=== PATIENT | female | born 1935 | race Caucasian/White ===

== ENCOUNTER 2018-01-01 17:48 | Observation (INO) | payer MEDICARE, BC ==
[~2018-01-01] VITALS: Ht 165.1 cm; Wt 120.0 kg
[2018-01-01 18:51] VITALS: BP 159/81; PULSE 94; RESP 18; TEMP 97.7; O2SAT 95
--- NOTE | 2018-01-01 19:26 | PD ---
HPI Chief Complaint: Abdominal Pain Time Seen by Provider: 19:01 Travel History International Travel<30 days: No Contact w/Intl Traveler<30days: No Traveled to known affect area: No History of Present Illness HPI 82-year-old female presents to the emergency department for evaluation of generalized abdominal pain, nausea, vomiting, diarrhea for 4 days. She states it started with a choking and coughing episode at a restaurant. Patient states she was seen at [facility] yesterday. However, she states her symptoms have worsened. She states she has had 4 episodes of vomiting today, 3 episodes of diarrhea. She states the diarrhea started today. She states she had a fever of 103.0 when she saw her primary care physician earlier today. He referred her to the emergency department. Patient reports history of chronic back pain, has a Dilaudid pain pump. She reports history of partial hysterectomy, cholecystectomy, appendectomy. Patient currently rates her abdominal pain 5/10, aching and throbbing across the upper abdomen. She also reports associated shortness of breath. Patient states she did not take anything for her fever. She is currently afebrile. No exacerbating or alleviating factors. Moderate severity PFSH Past Medical History High Cholesterol: Yes Diabetes: Yes Patient Takes Glucophage: No GERD: Yes Hypertension: Yes Pneumonia: Yes Tetanus Vaccination: > 5 Years Influenza Vaccination: No Past Surgical History Cholecystectomy: Yes Hysterectomy: Yes Tonsillectomy: Yes Social History Alcohol Use: No Tobacco Use: No Substance Use: No Allergies-Medications (Allergen,Severity, Reaction): Coded Allergies: acetaminophen (Verified Allergy, Unknown, 01/01/18) celecoxib (Verified Allergy, Unknown, 01/01/18) meperidine (Verified Allergy, Unknown, 01/01/18) morphine (Verified Allergy, Unknown, 01/01/18) oxycodone (Verified Allergy, Unknown, 01/01/18) propoxyphene (Verified Allergy, Unknown, 01/01/18) Reported Meds & Prescriptions Reported Meds & Active Scripts Active Reported Isosorbide Mononitrate ER (Isosorbide Mononitrate) 60 Mg Tab 60 Mg PO DAILY Novolog Inj (Insulin Aspart) 1,000 Unit/10 Ml Vial 0 SQ DIRECTED Sliding Scale as directed. Metoprolol Tartrate 25 Mg Tab 25 Mg PO BID Aspirin Low Dose (Aspirin) 81 Mg Chew 81 Mg CHEW DAILY Crestor (Rosuvastatin Calcium) 5 Mg Tab 5 Mg PO DAILY Gabapentin 100 Mg Cap 100 Mg PO HS Prilosec (Omeprazole Magnesium) 20 Mg Tab 40 Mg Hydroxyzine HCl 25 Mg Tab 25 Mg PO TID Bentyl (Dicyclomine HCl) 10 Mg Cap 10 Mg PO QID Review of Systems Except as stated in HPI: all other systems reviewed are Neg Physical Exam Narrative GENERAL: Well-nourished, well-developed female patient, afebrile. SKIN: Focused skin assessment warm/dry. HEAD: Normocephalic. Atraumatic EYES: No scleral icterus. No injection or drainage. NECK: Supple, trachea midline. No JVD or lymphadenopathy. CARDIOVASCULAR: Regular rate and rhythm without murmurs, gallops, or rubs. RESPIRATORY: Breath sounds equal bilaterally. No accessory muscle use. Lung sounds are clear to auscultation GASTROINTESTINAL: Abdomen soft and nondistended. She has epigastric tenderness to palpation. MUSCULOSKELETAL: No cyanosis, or edema. BACK: Nontender without obvious deformity. No CVA tenderness. Data Data Last Documented VS Vital Signs Date Time Temp Pulse Resp B/P (MAP) Pulse Ox O2 Delivery O2 Flow Rate FiO2 01/01/18 19:01 18 01/01/18 18:51 97.7 94 159/81 (107) 95 Orders Orders Complete Blood Count With Diff (01/01/18 19:16) Comprehensive Metabolic Panel (01/01/18 19:16) Lipase (01/01/18 19:16) Lactic Acid (01/01/18 19:16) Prothrombin Time / Inr (Pt) (01/01/18 19:16) Act Partial Throm Time (Ptt) (01/01/18 19:16) Urinalysis - C+S If Indicated (01/01/18 19:16) Ct Abd/Pel W Iv Contrast(Rout) (01/01/18 19:16) Iv Access Insert/Monitor (01/01/18 19:16) Ecg Monitoring (01/01/18 19:16) Oximetry (01/01/18 19:16) Ondansetron Inj (Zofran Inj) (01/01/18 19:30) Sodium Chloride 0.9% Flush (Ns Flush) (01/01/18 19:30) Electrocardiogram (3/19/18 19:16) Creatine Kinase (Cpk) (01/01/18 19:16) Troponin I (01/01/18 19:16) Chest, Single Ap (01/01/18 ) Sodium Chlorid 0.9% 500 Ml Inj (Ns 500 M (01/01/18 19:30) Influenzae A/B Antigen (01/01/18 19:16) CKMB (01/01/18 19:38) CKMB% (01/01/18 19:38) Sodium Chlorid 0.9% 500 Ml Inj (Ns 500 M (01/01/18 20:45) Iohexol 350 Inj (Omnipaque 350 Inj) (01/01/18 21:06) Aspirin Chew (Aspirin Chew) (01/01/18 21:45) Admit Order (Ed Use Only) (01/01/18 22:04) Place In Observation (01/01/18 ) Vital Signs (Adult) Q4H (01/01/18 22:04) Activity Oob With Assistance (01/01/18 22:04) Cyber Ops Planner / Telemetry .CONTINUOUS (01/01/18 22:04) Diet Heart Healthy (01/02/18 Breakfast) Sodium Chloride 0.9% Flush (Ns Flush) (01/01/18 22:15) Sodium Chloride 0.9% Flush (Ns Flush) (01/02/18 09:00) Basic Metabolic Panel (Bmp) (01/02/18 06:00) Complete Blood Count With Diff (01/02/18 06:00) Creatine Kinase (Cpk) (01/02/18 02:00) Creatine Kinase (Cpk) (01/02/18 08:00) Troponin I (01/02/18 02:00) Troponin I (01/02/18 08:00) Electrocardiogram (01/02/18 02:00) Electrocardiogram (01/02/18 08:00) Naloxone Inj (Narcan Inj) (01/01/18 22:15) Labs Laboratory Tests Test 01/01/18 19:38 01/01/18 20:20 White Blood Count 12.7 TH/MM3 Red Blood Count 4.84 MIL/MM3 Hemoglobin 14.5 GM/DL Hematocrit 43.7 % Mean Corpuscular Volume 90.4 FL Mean Corpuscular Hemoglobin 29.9 PG Mean Corpuscular Hemoglobin Concent 33.0 % Red Cell Distribution Width 13.3 % Platelet Count 208 TH/MM3 Mean Platelet Volume 9.4 FL Neutrophils (%) (Auto) 69.4 % Lymphocytes (%) (Auto) 20.3 % Monocytes (%) (Auto) 9.8 % Eosinophils (%) (Auto) 0.0 % Basophils (%) (Auto) 0.5 % Neutrophils # (Auto) 8.8 TH/MM3 Lymphocytes # (Auto) 2.6 TH/MM3 Monocytes # (Auto) 1.2 TH/MM3 Eosinophils # (Auto) 0.0 TH/MM3 Basophils # (Auto) 0.1 TH/MM3 CBC Comment DIFF FINAL Differential Comment Prothrombin Time 10.7 SEC Prothromb Time International Ratio 1.1 RATIO Activated Partial Thromboplast Time 25.0 SEC Blood Urea Nitrogen 13 MG/DL Creatinine 0.99 MG/DL Random Glucose 79 MG/DL Total Protein 7.8 GM/DL Albumin 3.6 GM/DL Calcium Level 9.4 MG/DL Alkaline Phosphatase 63 U/L Aspartate Amino Transf (AST/SGOT) 29 U/L Alanine Aminotransferase (ALT/SGPT) 21 U/L Total Bilirubin 0.7 MG/DL Sodium Level 143 MEQ/L Potassium Level 3.4 MEQ/L Chloride Level 105 MEQ/L Carbon Dioxide Level 28.2 MEQ/L Anion Gap 10 MEQ/L Estimat Glomerular Filtration Rate 54 ML/MIN Lactic Acid Level 1.5 mmol/L Total Creatine Kinase 467 U/L Creatine Kinase MB 3.8 NG/ML Creatine Kinase MB % 0.8 % Troponin I 0.09 NG/ML Lipase 62 U/L Urine Color LIGHT-YELLOW Urine Turbidity CLEAR Urine pH 7.[address] [place] 1.006 Urine Protein NEG mg/dL Urine Glucose (UA) NEG mg/dL Urine Ketones NEG mg/dL Urine Occult Blood TRACE Urine Nitrite NEG Urine Bilirubin NEG Urine Urobilinogen LESS THAN 2.0 MG/DL Urine Leukocyte Esterase SMALL Urine RBC 1 /hpf Urine WBC 5 /hpf Urine Squamous Epithelial Cells 3 /hpf Urine Bacteria RARE /hpf Microscopic Urinalysis Comment CULT NOT INDICATED MDM Medical Decision Making Medical Screen Exam Complete: Yes Emergency Medical Condition: Yes Medical Record Reviewed: Yes Interpretation(s) chest x-ray - CONCLUSION: 1. No acute findings. Cardiomegaly. Differential Diagnosis Pancreatitis versus diverticulitis versus UTI versus pneumonia versus influenza versus gastroenteritis Narrative Course 82-year-old female presents to the emergency department for evaluation of abdominal pain, fever, nausea, vomiting, diarrhea. EKG, CBC, CMP, CK, troponin , lactic acid, lipase, PTT, PT/INR, UA are ordered and pending. Chest x-ray and CT abdomen/pelvis with IV contrast ordered and pending. Patient was given normal saline 500 mL bolus, Zofran 4 mg IV. Influenza swab is ordered and pending EKG shows sinus rhythm, no acute ST changes. CBC shows leukocytosis of 12.7. CMP shows no acute abnormality. CK is 467. Troponin is 0.09. Lactic acid is 1.5. Lipase is 62. Coags show no acute abnormality. UA is negative for acute infection. Influenza is negative. Chest x-ray shows no acute findings, cardiomegaly. CT abdomen/pelvis shows ventral hernia near the umbilicus containing a small portion of the transverse colon without evidence for obstruction, previous cholecystectomy, small renal parapelvic cyst, previous fusion l lower lumbar spine with laminectomy, spinal stimulator wire present, moderate coronary calcifications. Patient is given aspirin 162 mg p.o. for elevated troponin. Patient will be admitted to trend troponins. Hospitalist is paged for admission. Dr. Aguirre accepted admission. Diagnosis Primary Impression: Epigastric abdominal pain Additional Impression: Elevated troponin Admitting Information Admitting Physician Requests: Tammi Hinson Jan 01, 2018 19:26
[2018-01-01] MEDS ORDERED: SODIUM CHLORID 0.9% 500 ML INJ 500 ML IV ONE ×2 (19:30→20:45)
[2018-01-01] MEDS ORDERED: SODIUM CHLORIDE 0.9% FLUSH 10 ML FLUSH IV FLUSH PRN ×2 (19:30→22:15)
[2018-01-01] MEDS ORDERED: ONDANSETRON HCL 4 MG/2 ML VIAL IVP ONE (19:30)
--- NOTE | 2018-01-01 20:07 | PD ---
Physical Exam Narrative General: The patient is a well-developed well-nourished female in no acute distress. Head and Neck exam: Head is normocephalic atraumatic. Eyes: EOMI, pupils are equal round and reactive to light. Nose: Midline septum with pink mucous membranes Mouth: Dentition unremarkable. Moist mucus membranes. Posterior oropharynx is not erythematous. No tonsillar hypertrophy. Uvula midline. Airway patent. Neck: No palpable lymphadenopathy. No nuchal rigidity. No thyromegaly. Cardiovascular: Regular rate and rhythm without murmurs, gallops, or rubs. Lungs: Clear to auscultation bilaterally. No wheezes, rhonchi, or rales. Abdomen: Soft, with central obesity noted therefore distended abdomen related to this, however no significant tenderness on palpation although the patient reports on palpation to have tenderness in bilateral upper and bilateral lower quadrants of the abdomen. No guarding, rebound, or rigidity. Normal bowel sounds are audible. No point tenderness over McBurney's point. Extremities: No clubbing, cyanosis, or edema. 2+ pulses in all 4 extremities. No calf tenderness on palpation. Back: No costovertebral angle tenderness to palpation. Neurologic Exam: Grossly nonfocal Skin Exam: No rash noted. Intact skin that is warm and dry. Data Data Last Documented VS Vital Signs Date Time Temp Pulse Resp B/P (MAP) Pulse Ox O2 Delivery O2 Flow Rate FiO2 01/01/18 19:01 18 01/01/18 18:51 97.7 94 159/81 (107) 95 Orders Orders Complete Blood Count With Diff (01/01/18 19:16) Comprehensive Metabolic Panel (01/01/18 19:16) Lipase (01/01/18 19:16) Lactic Acid (01/01/18 19:16) Prothrombin Time / Inr (Pt) (01/01/18 19:16) Act Partial Throm Time (Ptt) (01/01/18 19:16) Urinalysis - C+S If Indicated (01/01/18 19:16) Ct Abd/Pel W Iv Contrast(Rout) (01/01/18 19:16) Iv Access Insert/Monitor (01/01/18 19:16) Ecg Monitoring (01/01/18 19:16) Oximetry (01/01/18 19:16) Ondansetron Inj (Zofran Inj) (01/01/18 19:30) Sodium Chloride 0.9% Flush (Ns Flush) (01/01/18 19:30) Electrocardiogram (01/01/18 19:16) Creatine Kinase (Cpk) (01/01/18 19:16) Troponin I (01/01/18 19:16) Chest, Single Ap (01/01/18 ) Sodium Chlorid 0.9% 500 Ml Inj (Ns 500 M (01/01/18 19:30) Influenzae A/B Antigen (01/01/18 19:16) CKMB (01/01/18 19:38) CKMB% (01/01/18 19:38) Sodium Chlorid 0.9% 500 Ml Inj (Ns 500 M (01/01/18 20:45) Iohexol 350 Inj (Omnipaque 350 Inj) (01/01/18 21:06) Aspirin Chew (Aspirin Chew) (01/01/18 21:45) Admit Order (Ed Use Only) (01/01/18 22:04) Place In Observation (01/01/18 ) Vital Signs (Adult) Q4H (01/01/18 22:04) Activity Oob With Assistance (01/01/18 22:04) Singeing Torch Operator / Telemetry .CONTINUOUS (01/01/18 22:04) Diet Heart Healthy (01/02/18 Breakfast) Sodium Chloride 0.9% Flush (Ns Flush) (01/01/18 22:15) Sodium Chloride 0.9% Flush (Ns Flush) (01/02/18 09:00) Basic Metabolic Panel (Bmp) (01/02/18 06:00) Complete Blood Count With Diff (01/02/18 06:00) Creatine Kinase (Cpk) (01/02/18 02:00) Creatine Kinase (Cpk) (01/02/18 08:00) Troponin I (01/02/18 02:00) Troponin I (01/02/18 08:00) Electrocardiogram (01/02/18 02:00) Electrocardiogram (01/02/18 08:00) Naloxone Inj (Narcan Inj) (01/01/18 22:15) CKMB (01/02/18 02:00) CKMB% (01/02/18 02:00) Labs Laboratory Tests Test 01/01/18 19:38 01/01/18 20:20 White Blood Count 12.7 TH/MM3 Red Blood Count 4.84 MIL/MM3 Hemoglobin 14.5 GM/DL Hematocrit 43.7 % Mean Corpuscular Volume 90.4 FL Mean Corpuscular Hemoglobin 29.9 PG Mean Corpuscular Hemoglobin Concent 33.0 % Red Cell Distribution Width 13.3 % Platelet Count 208 TH/MM3 Mean Platelet Volume 9.4 FL Neutrophils (%) (Auto) 69.4 % Lymphocytes (%) (Auto) 20.3 % Monocytes (%) (Auto) 9.8 % Eosinophils (%) (Auto) 0.0 % Basophils (%) (Auto) 0.5 % Neutrophils # (Auto) 8.8 TH/MM3 Lymphocytes # (Auto) 2.6 TH/MM3 Monocytes # (Auto) 1.2 TH/MM3 Eosinophils # (Auto) 0.0 TH/MM3 Basophils # (Auto) 0.1 TH/MM3 CBC Comment DIFF FINAL Differential Comment Prothrombin Time 10.7 SEC Prothromb Time International Ratio 1.1 RATIO Activated Partial Thromboplast Time 25.0 SEC Blood Urea Nitrogen 13 MG/DL Creatinine 0.99 MG/DL Random Glucose 79 MG/DL Total Protein 7.8 GM/DL Albumin 3.6 GM/DL Calcium Level 9.4 MG/DL Alkaline Phosphatase 63 U/L Aspartate Amino Transf (AST/SGOT) 29 U/L Alanine Aminotransferase (ALT/SGPT) 21 U/L Total Bilirubin 0.7 MG/DL Sodium Level 143 MEQ/L Potassium Level 3.4 MEQ/L Chloride Level 105 MEQ/L Carbon Dioxide Level 28.2 MEQ/L Anion Gap 10 MEQ/L Estimat Glomerular Filtration Rate 54 ML/MIN Lactic Acid Level 1.5 mmol/L Total Creatine Kinase 467 U/L Creatine Kinase MB 3.8 NG/ML Creatine Kinase MB % 0.8 % Troponin I 0.09 NG/ML Lipase 62 U/L Urine Color LIGHT-YELLOW Urine Turbidity CLEAR Urine pH 7.0 Urine Specific [place] 1.006 Urine Protein NEG mg/dL Urine Glucose (UA) NEG mg/dL Urine Ketones NEG mg/dL Urine Occult Blood TRACE Urine Nitrite NEG Urine Bilirubin NEG Urine Urobilinogen LESS THAN 2.0 MG/DL Urine Leukocyte Esterase SMALL Urine RBC 1 /hpf Urine WBC 5 /hpf Urine Squamous Epithelial Cells 3 /hpf Urine Bacteria RARE /hpf Microscopic Urinalysis Comment CULT NOT INDICATED MDM Medical Record Reviewed: Yes Supervised Visit with TORIE: Yes Interpretation(s) Last Impressions Abdomen/Pelvis CT 01/01/18 1916 Signed Impressions: Service Date/Time: Monday, January 01, 2018 20:59 - CONCLUSION: 1. Ventral hernia near the umbilicus containing a small portion of the transverse colon without evidence for obstruction. 2. Previous cholecystectomy. Small renal parapelvic cysts. Previous fusion lower lumbar spine with laminectomy. Spinal stimulator wire present. Moderate coronary calcifications. Ky Holt MD Chest X-Ray 01/01/18 0000 Signed Impressions: Service Date/Time: Monday, January 01, 2018 19:26 - CONCLUSION: 1. No acute findings. Cardiomegaly. Ky Holt MD Narrative Course At my mid-level I, Dr. Lai, have reviewed the advance practice practitioner' s documentation and am in agreement, met with the patient face to face, made the diagnosis, and the medical decision making was done by me. The patient was initially evaluated by Tammi, the GROUT MACHINE OPERATOR. Please see their complete history and physical. *My assessment and Findings: The patient presents with reported history of not feeling well for the last 4 days. She reports that it began while she was at a restaurant and had a choking episode while eating. She reports that she was gagging and coughing for an extended period of time. She did not require the Heimlich new over. She did have improvement of the cough, however the cough again recurred the next morning. She reports that it has been a dry cough. She reports that she has had gagging associated with the cough. She reports that she has been vomiting. She reports that she developed a fever with a T- max of 103-24 hrs. later. She denies any recent antibiotic use. She reports that she went to [facility] yesterday and had an evaluation done. She reports that she was diagnosed with diarrhea. She reports that she was at home with a nausea medication prescription, however she has not had it filled as she has nausea medication at home. She continues to feel unwell, therefore she came to this facility for evaluation and treatment. During the course of the patient's emergency department visit, the patient's history, examination, and differential diagnosis were reviewed with the patient. The patient was placed on a athletic monitor with oximetry and frequent blood pressure monitoring. The patient had IV access obtained and blood work sent for analysis. The patient was initially provided normal saline IV fluids, antiemetics. The patient's laboratory studies were reviewed and remarkable for a white count of 12.7, hemoglobin 14.5, platelets 208 with 9.8 monocytes, CMP is remarkable for potassium of 3.4, GFR 54, lactic acid 1.5, CPK 467 with an MB percent of 0.8 , troponin I 0.09, lipase 62. PT 10.7, PTT 25, urinalysis shows trace occult blood small leukocyte esterase Radiology studies were reviewed and remarkable for a chest x-ray that shows no acute findings, cardiomegaly is noted. CT scan of the abdomen and pelvis shows a ventral hernia near the umbilicus containing a small portion of the transverse colon without evidence for obstruction, previous cholecystectomy, small renal parapelvic cysts, previous fusion of the lumbar spine and laminectomy, spinal stimulator wire present, moderate coronary calcifications. The patient's results were discussed with the patient, including the plan of care. I explained that further testing and/ or monitoring is indicated based on the patient's history, examination, and/ or laboratory findings. Therefore, I recommended admission for additional evaluation. The patient expressed understanding and was agreeable with this plan. The patient was admitted to the hospital in stable condition and [facility] Diagnosis Primary Impression: Epigastric abdominal pain Additional Impression: Elevated troponin Admitting Information Admitting Physician Requests: Admit Swathi Lai MD Jan 01, 2018 20:07
--- NOTE | 2018-01-01 20:11 | RADRPT ---
EXAM DATE/TIME: 01/01/2018 19:26 [facility] COMPARISON: No previous studies available for comparison. INDICATIONS : Short of breath. Cough. MEDICAL HISTORY : None. SURGICAL HISTORY : None. ENCOUNTER: Initial ACUITY: 4 - 6 days PAIN SCORE: 0/10 LOCATION: Bilateral chest FINDINGS: A single view of the chest demonstrates the lungs to be symmetrically aerated without evidence of mas s, infiltrate or effusion. The cardiomediastinal contours are prominent. No effusion or pneumothorax . CONCLUSION: 1. No acute findings. Cardiomegaly. Ky Holt MD on January 01, 2018 at 20:08 Board Certified Radiologist. This report was verified electronically.
[2018-01-01 20:18] LABS: AUTOMATED NEUTROPHIL # 8.8 TH/MM3 (1.8-7.7); BASOPHIL # 0.1 TH/MM3 (0-0.2); BASOPHIL % 0.5 % (0.0-2.0); HEMATOCRIT 43.7 % (35.0-46.0); HEMOGLOBIN 14.5 GM/DL (11.6-15.3); LYMPH % 20.3 % (9.0-44.0); LYMPHOCYTE # 2.6 TH/MM3 (1.0-4.8); MEAN CELL VOLUME 90.4 FL (80.0-100.0); MEAN CORPUSCULAR HEMOGLOBIN 29.9 PG (27.0-34.0); MEAN PLATELET VOLUME 9.4 FL (7.0-11.0); MONO % 9.8 % (0.0-8.0); MONOCYTE # 1.2 TH/MM3 (0-0.9); NEUT % 69.4 % (16.0-70.0); PLATELET COUNT 208 TH/MM3 (150-450); RED BLOOD COUNT 4.84 MIL/MM3 (4.00-5.30); RED CELL DISTRIBUTION WIDTH 13.3 % (11.6-17.2); WHITE BLOOD COUNT 12.7 TH/MM3 (4.0-11.0)
[2018-01-01 20:24] LABS: ALBUMIN 3.6 GM/DL (3.4-5.0); AST (GOT) 29 U/L (15-37); BICARBONATE 28.2 MEQ/L (21.0-32.0); BLOOD UREA NITROGEN 13 MG/DL (7-18); CALCIUM 9.4 MG/DL (8.5-10.1); CHLORIDE 105 MEQ/L (98-107); CREATININE 0.99 MG/DL (0.50-1.00); GLOMERULAR FILTRATION RATE 54 ML/MIN (>89); GLUCOSE,RANDOM 79 MG/DL (74-106); INTERNATIONAL NORMALIZED RATIO 1.1 RATIO; PROTHROMBIN TIME - PATIENT 10.7 SEC (9.8-11.6); SODIUM (NA) 143 MEQ/L (136-145)
[2018-01-01 20:25] LABS: ALT (GPT) 21 U/L (10-53)
[2018-01-01 20:29] LABS: ALKALINE PHOSPHATASE 63 U/L (45-117); TOTAL BILIRUBIN ADULT 0.7 MG/DL (0.2-1.0); TOTAL PROTEIN 7.8 GM/DL (6.4-8.2); TROPONIN I 0.09 NG/ML (0.02-0.05)
[2018-01-01 20:59] LABS: BACTERIA, URINE RARE /hpf; BILIRUBIN, URINE NEG (NEG); BLOOD, URINE TRACE (NEG); GLUCOSE,URINE NEG (NEG); KETONE, URINE NEG (NEG); NITRITE,URINE NEG (NEG); SQUAMOUS EPITHELIAL CELL URINE 3 /hpf (0-5); URINE COLOR LIGHT-YELLOW (YELLW/STRAW); URINE LEUKOCYTE ESTERASE SMALL (NEG)
[2018-01-01] MEDS ORDERED: IOHEXOL 350 MG/ML 10 ML VIAL (for RAD DIAG) IVCONTRAST ONE (21:06)
--- NOTE | 2018-01-01 21:24 | RADRPT ---
EXAM DATE/TIME: 01/01/2018 20:59 [facility] COMPARISON: No previous studies available for comparison. INDICATIONS : Abdomen pain. IV CONTRAST: 100 cc Omnipaque 350 (iohexol) IV ORAL CONTRAST: No oral contrast ingested. RADIATION DOSE: 16.49 CTDIvol (mGy) MEDICAL HISTORY : Gastroesophageal reflux disease. SURGICAL HISTORY : Cholecystectomy. Hysterectomy. ENCOUNTER: Initial ACUITY: 1 day PAIN SCALE: 5/10 LOCATION: Bilateral abdomen TECHNIQUE: Volumetric scanning of the abdomen and pelvis was performed. Using automated exposure control and ad justment of the mA and/or kV according to patient size, radiation dose was kept as low as reasonably achievable to obtain optimal diagnostic quality images. DICOM format image data is available electro nically for review and comparison. FINDINGS: Lung bases are clear. No pleural or pericardial effusion. Moderate coronary calcifications. Spinal st imulator extends into the lower thoracic bowel. No acute findings in the liver, spleen, kidneys or pancreas. Small parapelvic cysts in the kidneys. M ild left adrenal hyperplasia. Previous cholecystectomy. There is a ventral hernia which contains a small portion of the transverse colon and some associated fat near the umbilicus. No associated obstruction. There is previous spinal fixation the lower lumbar spine. CONCLUSION: 1. Ventral hernia near the umbilicus containing a small portion of the transverse colon without evide nce for obstruction. 2. Previous cholecystectomy. Small renal parapelvic cysts. Previous fusion lower lumbar spine with la minectomy. Spinal stimulator wire present. Moderate coronary calcifications. Ky Holt MD on January 01, 2018 at 21:17 Board Certified Radiologist. This report was verified electronically.
[2018-01-01] MEDS ORDERED: ASPIRIN 81 MG CHEW TAB CHEW ONE (21:45)
[2018-01-01] MEDS ORDERED: PRIL20TA2 (22:12)
[2018-01-01] MEDS ORDERED: HYDR-3133 PO (22:12)
[2018-01-01] MEDS ORDERED: ASPI81CH6 PO (22:12)
[2018-01-01] MEDS ORDERED: NOVOLOGP2 SQ (22:12)
[2018-01-01] MEDS ORDERED: ISOS60TA PO (22:12)
[2018-01-01] MEDS ORDERED: GABA100C4 PO (22:12)
[2018-01-01] MEDS ORDERED: METO25TA3 PO (22:12)
[2018-01-01] MEDS ORDERED: ROSU5 PO (22:12)
[2018-01-01] MEDS ORDERED: DICY10 PO (22:12)
[2018-01-01] MEDS ORDERED: NALOXONE HCL 0.4 MG/ML AMP IV PUSH PRN (22:15)
[2018-01-01 23:00] VITALS: BP 147/78; PULSE 93; RESP 16; O2SAT 97
[2018-01-01] MEDS ORDERED: MELATONIN 5 MG TAB PO ONE (23:30)
[2018-01-02] VITALS (7 sets, daily range): BP systolic 126–205; BP diastolic 66–95; PULSE 72–118; RESP 14–18; TEMP 98–98.4; O2SAT 93–98
[2018-01-02 02:51] LABS: TROPONIN I 0.1 NG/ML (0.02-0.05)
[2018-01-02 05:56] LABS: AUTOMATED NEUTROPHIL # 10.4 TH/MM3 (1.8-7.7); BASOPHIL % 0.3 % (0.0-2.0); EOSINOPHIL % 0.2 % (0.0-4.0); HEMATOCRIT 42.9 % (35.0-46.0); HEMOGLOBIN 14.4 GM/DL (11.6-15.3); LYMPH % 17.1 % (9.0-44.0); LYMPHOCYTE # 2.4 TH/MM3 (1.0-4.8); MEAN CORPUSCULAR HEMOGLOBIN 30.8 PG (27.0-34.0); MEAN CORPUSCULAR HGB CONC 33.5 % (32.0-36.0); MEAN PLATELET VOLUME 9.3 FL (7.0-11.0); MONO % 9.5 % (0.0-8.0); MONOCYTE # 1.4 TH/MM3 (0-0.9); NEUT % 72.9 % (16.0-70.0); PLATELET COUNT 208 TH/MM3 (150-450); RED BLOOD COUNT 4.66 MIL/MM3 (4.00-5.30); RED CELL DISTRIBUTION WIDTH 13.7 % (11.6-17.2); WHITE BLOOD COUNT 14.3 TH/MM3 (4.0-11.0)
[2018-01-02 06:29] LABS: BICARBONATE 23.6 MEQ/L (21.0-32.0); CALCIUM 9.4 MG/DL (8.5-10.1); CREATININE 0.9 MG/DL (0.50-1.00)
--- NOTE | 2018-01-02 08:44 | EKG ---
Date Performed: 01/02/2018 Time Performed: 02:22:33 PTAGE: 82 years EKG: Sinus rhythm NORMAL ECG NO PREVIOUS TRACING DOCTOR: Lyndon Rodríguez Interpretating Date/Time 01/02/2018 08:26:52
--- NOTE | 2018-01-02 08:45 | EKG ---
Date Performed: 01/01/2018 Time Performed: 21:14:38 PTAGE: 82 years EKG: Sinus rhythm NORMAL ECG NO PREVIOUS TRACING DOCTOR: Lyndon Rodírguez Interpretating Date/Time 01/02/2018 08:31:53
[2018-01-02] MEDS: SODIUM CHLORIDE 0.9% FLUSH 10 ML FLUSH IV FLUSH SCH ×2 (09:28→21:00)
[2018-01-02 09:59] LABS: TROPONIN I 0.08 NG/ML (0.02-0.05)
[2018-01-02] MEDS ORDERED: GLUCAGON 1 MG/ML VIAL OTHER PRN (10:30)
[2018-01-02] MEDS ORDERED: DEXTROSE 50% IN WATER 50 ML VIAL(D50) IV PUSH PRN (10:30)
[2018-01-02] MEDS ORDERED: METOPROLOL TARTRATE 25 MG TAB PO ONE (11:30)
[2018-01-02] MEDS ORDERED: ISOSORBIDE MONONITRATE 60 MG CR TAB (IMDUR) PO ONE (11:30)
[2018-01-02] MEDS: hydrOXYzine HCL 25 MG TAB PO SCH ×2 (13:08→18:11)
--- NOTE | 2018-01-02 13:19 | HHI.HP ---
HPI Service [facility] Primary Care Physician Vicente Contreras DO Admission Diagnosis epigastric abdominal pain, elevated troponin Diagnoses: Chief Complaint: abdominal pain/nausea/vomiting/diarrhea Travel History International Travel<30 Days: No Contact w/Intl Traveler <30 Da: No Traveled to Known Affected Are: No Sepsis Criteria SIRS Criteria (2 or more): Heart rate over 90, WBC > 57138, < 4000 or > 10% bands Sepsis Criteria (SIRS+source): Infect source susp/known Criteria Outcome: Meets sepsis criteria History of Present Illness Written by Raissa Mason, acting as scribe for Dr. Daniels on 01/02/18 at 13:15. 82-year-old female with history of HTN, HLD, DM, GERD, chronic back pain with dilaudid pump, presents with a 4 day history of abdominal pain, nausea/vomiting , and now diarrhea. The patient reports her symptoms began with a choking/ coughing episode at a restaurant on night 12/28. She states she choked on a piece of hamburger but did not require the Heimlich maneuver. She continued to cough throughout the night, then developed diffuse upper abdominal pain described as throbbing/cramping 5/10 pain. She reports intermittent nausea with 4 episodes of vomiting yesterday. She was seen at [facility] 2 days ago and discharged home from the ER. She then reports her symptoms worsened and experienced 3 episodes of nonbloody diarrhea. She saw her PCP yesterday and had a fever of 103.0, therefore she was referred to [place] emergency department. Upon arrival to the ED, she was afebrile with leukocytosis WBC 12.7K, and tachycardia HR 94. UA and influenza negative. CT abdomen/pelvis shows ventral hernia near the umbilicus containing a small portion of the transverse colon without evidence for obstruction. The patient was admitted to observation for further evaluation and treatment. She denies any other medical complaints at this time. She does have a merchandising specialist in [place] but no merchandising specialist locally. 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 Review of Systems Except as stated in HPI: all other systems reviewed are Neg Past Family Social History Past Medical History HTN HLD DM GERD chronic back pain with dilaudid pump cystocele/rectocele with surgery Past Surgical History Cholecystectomy Hysterectomy Tonsillectomy Lumbar fusion/laminectomy Pain pump placement Right Mastoid surgeries x4 Proctopexy Reported Medications Isosorbide Mononitrate ER (Isosorbide Mononitrate) 60 Mg Tab 60 Mg PO DAILY Novolog Inj (Insulin Aspart) 1,000 Unit/10 Ml Vial 0 SQ DIRECTED Sliding Scale as directed. Metoprolol Tartrate 25 Mg Tab 25 Mg PO BID Aspirin Low Dose (Aspirin) 81 Mg Chew 81 Mg CHEW DAILY Crestor (Rosuvastatin Calcium) 5 Mg Tab 5 Mg PO DAILY Gabapentin 100 Mg Cap 100 Mg PO HS Prilosec (Omeprazole Magnesium) 20 Mg Tab 40 Mg Hydroxyzine HCl 25 Mg Tab 25 Mg PO TID Bentyl (Dicyclomine HCl) 10 Mg Cap 10 Mg PO QID Allergies: Coded Allergies: acetaminophen (Verified Allergy, Unknown, 01/01/18) celecoxib (Verified Allergy, Unknown, 01/01/18) meperidine (Verified Allergy, Unknown, 01/01/18) morphine (Verified Allergy, Unknown, 01/01/18) oxycodone (Verified Allergy, Unknown, 01/01/18) propoxyphene (Verified Allergy, Unknown, 01/01/18) Active Ordered Medications Current Medications Medications (Trade) Dose Ordered Sig/Yani Route Start Time Stop Time Status Last Admin (NS Flush) 2 ml UNSCH PRN IV FLUSH 01/01/18 22:15 (NS Flush) 2 ml BID IV FLUSH 01/02/18 09:00 01/02/18 09:28 (Narcan Inj) 0.4 mg UNSCH PRN IV PUSH 01/01/18 22:15 (D50w (Vial) Inj) 50 ml UNSCH PRN IV PUSH 01/02/18 10:30 (Glucagon Inj) 1 mg UNSCH PRN OTHER 01/02/18 10:30 (NovoLOG SUPPLEMENTAL SCALE) 1 ACHS SLIDING SCALE SQ 01/02/18 12:00 (Aspirin Chew) 81 mg DAILY CHEW 01/03/18 09:00 (Bentyl) 10 mg QID PO 01/02/18 13:00 (Neurontin) 100 mg HS PO 01/02/18 21:00 (Atarax) 25 mg TID PO 01/02/18 13:00 (Imdur) 60 mg DAILY PO 01/03/18 09:00 (Lopressor) 25 mg BID PO 01/02/18 21:00 (Lipitor) 10 mg DAILY PO 01/03/18 09:00 Family History Daughter with heart attack and kidney problems, age 51 ( last month) Mother lived to be 93, with a heart attack Social History Denies any tobacco, alcohol, or illicit drug use. Physical Exam Vital Signs Vital Signs Date Time Temp Pulse Resp B/P (MAP) Pulse Ox O2 Delivery O2 Flow Rate FiO2 01/02/18 11:52 98.1 118 14 205/95 (131) 98 01/02/18 11:40 01/02/18 10:04 98.0 88 18 175/81 (112) 95 Room Air 01/02/18 03:00 87 16 155/80 (105) 96 Room Air 01/01/18 23:00 93 16 147/78 (101) 97 Room Air 01/01/18 19:01 18 01/01/18 18:51 97.7 94 18 159/81 (107) 95 Physical Exam GENERAL: Well-nourished, well-developed elderly female patient in [facility]. SKIN: Warm and dry. No rash. HEAD: Normocephalic. Atraumatic. EYES: Pupils equal and round. No scleral icterus. No injection or drainage. ENT: No nasal bleeding or discharge. Mucous membranes pink and moist. NECK: Supple. Trachea midline. CARDIOVASCULAR: Regular rate and rhythm. S1, S2 noted. No murmur appreciated. RESPIRATORY: No accessory muscle use. Clear to auscultation. Breath sounds equal bilaterally. GASTROINTESTINAL: Abdomen soft, non-tender, nondistended. Normoactive bowel sounds x4. MUSCULOSKELETAL: No obvious deformities. Extremities without clubbing, cyanosis , or edema. NEUROLOGICAL: Awake and alert. No obvious cranial nerve deficits. Motor grossly within normal limits. 5/5 muscle strength in bilateral upper and lower extremities. Normal speech. PSYCHIATRIC: Appropriate mood and affect; insight and judgment normal. Laboratory Laboratory Tests Test 01/01/18 19:38 01/01/18 20:20 01/02/18 02:00 01/02/18 04:37 White Blood Count 12.7 14.3 Red Blood Count 4.84 4.66 Hemoglobin 14.5 14.4 Hematocrit 43.7 42.9 Mean Corpuscular Volume 90.4 92.0 Mean Corpuscular Hemoglobin 29.9 30.8 Mean Corpuscular Hemoglobin Concent 33.0 33.5 Red Cell Distribution Width 13.3 13.7 Platelet Count 208 208 Mean Platelet Volume 9.4 9.3 Neutrophils (%) (Auto) 69.4 72.9 Lymphocytes (%) (Auto) 20.3 17.1 Monocytes (%) (Auto) 9.8 9.5 Eosinophils (%) (Auto) 0.0 0.2 Basophils (%) (Auto) 0.5 0.3 Neutrophils # (Auto) 8.8 10.4 Lymphocytes # (Auto) 2.6 2.4 Monocytes # (Auto) 1.2 1.4 Eosinophils # (Auto) 0.0 0.0 Basophils # (Auto) 0.1 0.0 CBC Comment DIFF FINAL DIFF FINAL Differential Comment Prothrombin Time 10.7 Prothromb Time International Ratio 1.1 Activated Partial Thromboplast Time 25.0 Blood Urea Nitrogen 13 13 Creatinine 0.99 0.90 Random Glucose 79 238 Total Protein 7.8 Albumin 3.6 Calcium Level 9.4 9.4 Alkaline Phosphatase 63 Aspartate Amino Transf (AST/SGOT) 29 Alanine Aminotransferase (ALT/SGPT) 21 Total Bilirubin 0.7 Sodium Level 143 139 Potassium Level 3.4 3.6 Chloride Level 105 103 Carbon Dioxide Level 28.2 23.6 Anion Gap 10 12 Estimat Glomerular Filtration Rate 54 60 Lactic Acid Level 1.5 Total Creatine Kinase 467 459 Creatine Kinase MB 3.8 3.4 Creatine Kinase MB % 0.8 0.7 Troponin I 0.09 0.10 Lipase 62 Urine Color LIGHT-YELLOW Urine Turbidity CLEAR Urine pH 7.0 Urine Specific Mustang 1.006 Urine Protein NEG Urine Glucose (UA) NEG Urine Ketones NEG Urine Occult Blood TRACE Urine Nitrite NEG Urine Bilirubin NEG Urine Urobilinogen LESS THAN 2.0 Urine Leukocyte Esterase SMALL Urine RBC 1 Urine WBC 5 Urine Squamous Epithelial Cells 3 Urine Bacteria RARE Microscopic Urinalysis Comment CULT NOT INDICATED Test 01/02/18 05:50 Total Creatine Kinase 431 Creatine Kinase MB 3.0 Creatine Kinase MB % 0.7 Troponin I 0.08 Date/Time Source Procedure Growth Status 01/01/18 19:35 Nasal Aspirate Influenza Types A,B Antigen (ADITI) - Final NEGATIVE FOR FLU A AND B ANTIGEN.... Complete Result Diagram: 01/02/18 0437 01/02/18 0437 Imaging Last Impressions Abdomen/Pelvis CT 01/01/186 Signed Impressions: Service Date/Time: Monday, January 01, 2018 20:59 - CONCLUSION: 1. Ventral hernia near the umbilicus containing a small portion of the transverse colon without evidence for obstruction. 2. Previous cholecystectomy. Small renal parapelvic cysts. Previous fusion lower lumbar spine with laminectomy. Spinal stimulator wire present. Moderate coronary calcifications. Ky Holt MD Chest X-Ray 01/01/18 0000 Signed Impressions: Service Date/Time: Monday, January 01, 2018 19:26 - CONCLUSION: 1. No acute findings. Cardiomegaly. Ky Holt MD Caplidyai VTE Risk Assessment Caprini VTE Risk Assessment: Mod/High Risk (score >= 2) Caprini Risk Assessment Model Point Value = 1 Point Value = 2 Point Value = 3 Point Value = 5 Age 41-60 Minor surgery BMI > 25 kg/m2 Swollen legs Varicose veins or History of unexplained or recurrent spontaneous Oral contraceptives or hormone replacement Sepsis (< 1 month) Serious lung disease, including pneumonia (< 1 month) Abnormal pulmonary function Acute myocardial infarction Congestive heart failure (< 1 month) History of inflammatory bowel disease Medical patient at bed rest Age 61-74 Arthroscopic surgery Major open surgery (> 45 min) Laparoscopic surgery (> 45 min) Malignancy Confined to bed (> 72 hours) Immobilizing plaster cast Central venous access Age >= 75 History of VTE Family history of VTE Factor V Leiden Prothrombin [id number] Lupus anticoagulant Anticardiolipin antibodies Elevated serum homocysteine Heparin-induced thrombocytopenia Other congenital or acquired thrombophilia Stroke (< 1 month) Elective arthroplasty Hip, pelvis, or leg fracture Acute spinal cord injury (< 1 month) Prophylaxis Regimen Total Risk Factor Score Risk Level Prophylaxis Regimen 0-1 Low Early ambulation 2 Moderate Order ONE of the following: *Sequential Compression Device (SCD) *Heparin 5000 units SQ BID 3-4 Higher Order ONE of the following medications: *Heparin 5000 units SQ TID *Enoxaparin/Lovenox 40 mg SQ daily (WT < 150 kg, CrCl > 30 mL/min) *Enoxaparin/Lovenox 30 mg SQ daily (WT < 150 kg, CrCl > 10-29 mL/min) *Enoxaparin/Lovenox 30 mg SQ BID (WT < 150 kg, CrCl > 30 mL/min) AND/OR *Sequential Compression Device (SCD) 5 or more Highest Order ONE of the following medications: *Heparin 5000 units SQ TID (Preferred with Epidurals) *Enoxaparin/Lovenox 40 mg SQ daily (WT < 150 kg, CrCl > 30 mL/min) *Enoxaparin/Lovenox 30 mg SQ daily (WT < 150 kg, CrCl > 10-29 mL/min) *Enoxaparin/Lovenox 30 mg SQ BID (WT < 150 kg, CrCl > 30 mL/min) AND *Sequential Compression Device (SCD) Assessment and Plan Assessment and Plan 82-year-old female with history of HTN, HLD, DM, GERD, chronic back pain with dilaudid pump, presents with a 4 day history of abdominal pain, nausea/vomiting , and now diarrhea. Sepsis with Gastroenteritis: patient presented with abdominal pain/nausea/ vomiting/diarrhea, with outpatient fever 103. Meets sepsis criteria with WBC 14.3K, tachycardia HR 118, and suspect source-gastroenteritis. -CT abdomen/pelvis images reviewed, shows ventral hernia near the umbilicus containing a small portion of the transverse colon without evidence for obstruction. -Influenza negative, UA negative, CXR unremarkable -Lipase and LFTs wnl -Check stool studies and C.difficile -Supportive treatment with IVF hydration, antiemetics prn, pain control prn -Restart patient's bentyl qid -Start on PPI -Diet as tolerated -Monitor for improvement -Consider GI consult if no improvement Accelerated Hypertension: BP elevated to 205/95. -restart patient's home meds including metoprolol 25mg bid, imdur 60mg qd -monitor BP, adjust antihypertensives as needed Elevated Troponin: troponins elevated but flat at 0.09, 0.10, 0.08 -possibly secondary to demand ischemia from accelerated hypertension as above , vs chronic kidney disease -no complaints of chest pain -ECG reviewed, no acute ischemic changes -monitor on telemetry -continue aspirin, and patient's BB and imdur Diabetes Mellitus: chronic -monitor Accu-cheks and cover with SSI Hyperlipidemia: chronic -continue patient's statin Chronic Back Pain: has dilaudid pain pump, per the patient -continue pain pump and outpatient f/up DVT Prophylaxis: teds/SCDs This note was transcribed by DAVY Carrera. I, Dr. Ju Daniels personally performed the history, physical exam, and medical decision making; and confirmed the accuracy of the information in the transcribed note. Authenticated by Dr. Ju Daniels on 01/02/18 at 13:15. Discussed Condition With Patient, Raissa Guevara PA-C Jan 02, 2018 13:19 Ju Daniels MD Jan 02, 2018 13:47
[2018-01-02] MEDS: DICYCLOMINE HCL 10 MG CAP PO SCH ×3 (13:28→21:50)
[2018-01-02] MEDS ORDERED: SODIUM CHLOR 0.9% 1000 ML INJ 1,000 ML IV SCH (13:30)
[2018-01-02] MEDS ORDERED: ONDANSETRON HCL 4 MG/2 ML VIAL IV PUSH PRN (13:30)
[2018-01-02] MEDS: INSULIN ASPART SUPPLEMENTAL SCALE SQ SCH ×3 (13:58→22:02)
[2018-01-02] MEDS: PANTOPRAZOLE SOD 40 MG DELAYED RELEASE TAB PO SCH (14:39)
--- NOTE | 2018-01-02 14:47 | EKG ---
Date Performed: 01/02/2018 Time Performed: 09:43:34 PTAGE: 82 years EKG: Sinus rhythm BORDERLINE LEFT AXIS DEVIATION BORDERLINE ECG PREVIOUS TRACING : 01/02/2018 02.22 No significant change from previous tracing noted. DOCTOR: Lyndon Rodríguez Interpretating Date/Time 01/02/2018 14:45:51
[2018-01-02] MEDS ORDERED: GABAPENTIN 100 MG CAP PO SCH (21:00)
[2018-01-02] MEDS: METOPROLOL TARTRATE 25 MG TAB PO SCH (21:50)
[2018-01-03 00:05] VITALS: PULSE 68
[2018-01-03 02:28] VITALS: BP 120/84; PULSE 85; RESP 18; TEMP 99.1; O2SAT 96
[2018-01-03 05:26] VITALS: PULSE 77
[2018-01-03 07:17] VITALS: BP 174/91; PULSE 87; RESP 18; TEMP 97.7; O2SAT 92
--- NOTE | 2018-01-03 07:29 | HHI.DCPOC ---
Discharge Care Plan Diagnosis: (1) Gastroenteritis (2) Epigastric abdominal pain Goals to Promote Your Health * To prevent worsening of your condition and complications * To maintain your health at the optimal level Directions to Meet Your Goals Take your medications as prescribed Follow your dietary instruction Follow activity as directed Keep your appointments as scheduled Take your immunizations and boosters as scheduled If your symptoms worsen call your PCP, if no PCP go to Urgent Care Center or Emergency Room Smoking is Dangerous to Your Health. Avoid second hand smoke Call the 24-hour hour crisis hotline for domestic abuse at Raissa Mason PA-C Jan 03, 2018 7:29 am
[2018-01-03 07:41] LABS: AUTOMATED NEUTROPHIL # 4.5 TH/MM3 (1.8-7.7); BASOPHIL # 0.1 TH/MM3 (0-0.2); BASOPHIL % 0.7 % (0.0-2.0); EOSINOPHIL # 0.1 TH/MM3 (0-0.4); EOSINOPHIL % 1.1 % (0.0-4.0); HEMATOCRIT 41.7 % (35.0-46.0); HEMOGLOBIN 13.7 GM/DL (11.6-15.3); LYMPHOCYTE # 2.8 TH/MM3 (1.0-4.8); MEAN CELL VOLUME 93.1 FL (80.0-100.0); MEAN CORPUSCULAR HEMOGLOBIN 30.6 PG (27.0-34.0); MEAN CORPUSCULAR HGB CONC 32.9 % (32.0-36.0); MEAN PLATELET VOLUME 9.2 FL (7.0-11.0); MONOCYTE # 0.8 TH/MM3 (0-0.9); NEUT % 54.2 % (16.0-70.0); PLATELET COUNT 181 TH/MM3 (150-450); RED BLOOD COUNT 4.48 MIL/MM3 (4.00-5.30); RED CELL DISTRIBUTION WIDTH 13.4 % (11.6-17.2); WHITE BLOOD COUNT 8.3 TH/MM3 (4.0-11.0)
--- NOTE | 2018-01-03 08:28 | HHI.DS ---
Discharge Summary Admission Date Jan 01, 2018 at 22:06 Discharge Date: Jan 03, 2018 Admitting Diagnosis epigastric abdominal pain, elevated troponin (1) Generalized weakness ICD Code: R53.1 - Weakness (2) Gastroenteritis ICD Code: K52.9 - Noninfective gastroenteritis and colitis, unspecified (3) GERD (gastroesophageal reflux disease) ICD Code: K21.9 - Gastro-esophageal reflux disease without esophagitis (4) HTN (hypertension) ICD Code: I10 - Essential (primary) hypertension (5) HLD (hyperlipidemia) ICD Code: E78.5 - Hyperlipidemia, unspecified (6) Chronic back pain ICD Code: M54.9 - Dorsalgia, unspecified; G89.29 - Other chronic pain Procedures No procedures Brief History - From Admission Written by Raissa Mason, acting as scribe for Dr. Daniels on 01/02/18 at 13:15. 82-year-old female with history of HTN, HLD, DM, GERD, chronic back pain with dilaudid pump, presents with a 4 day history of abdominal pain, nausea/vomiting , and now diarrhea. The patient reports her symptoms began with a choking/ coughing episode at a restaurant on night 12/28. She states she choked on a piece of hamburger but did not require the Heimlich maneuver. She continued to cough throughout the night, then developed diffuse upper abdominal pain described as throbbing/cramping 5/10 pain. She reports intermittent nausea with 4 episodes of vomiting yesterday. She was seen at [facility] 2 days ago and discharged home from the ER. She then reports her symptoms worsened and experienced 3 episodes of nonbloody diarrhea. She saw her PCP yesterday and had a fever of 103.0, therefore she was referred to [place] emergency department. Upon arrival to the ED, she was afebrile with leukocytosis WBC 12.7K, and tachycardia HR 94. UA and influenza negative. CT abdomen/pelvis shows ventral hernia near the umbilicus containing a small portion of the transverse colon without evidence for obstruction. The patient was admitted to observation for further evaluation and treatment. She denies any other medical complaints at this time. She does have a environmental health technician in [place] but no environmental health technician locally. 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 CBC/BMP: 01/03/18 0630 01/02/18 0437 Significant Findings Laboratory Tests Test 01/01/18 19:38 01/01/18 20:20 01/02/18 02:00 01/02/18 04:37 White Blood Count 12.7 TH/MM3 (4.0-11.0) 14.3 TH/MM3 (4.0-11.0) Monocytes (%) (Auto) 9.8 % (0.0-8.0) 9.5 % (0.0-8.0) Neutrophils # (Auto) 8.8 TH/MM3 (1.8-7.7) 10.4 TH/MM3 (1.8-7.7) Monocytes # (Auto) 1.2 TH/MM3 (0-0.9) 1.4 TH/MM3 (0-0.9) Potassium Level 3.4 MEQ/L (3.5-5.1) Estimat Glomerular Filtration Rate 54 ML/MIN (>89) 60 ML/MIN (>89) Total Creatine Kinase 467 U/L (26-192) 459 U/L (26-192) Creatine Kinase MB 3.8 NG/ML (0.5-3.6) Troponin I 0.09 NG/ML (0.02-0.05) 0.10 NG/ML (0.02-0.05) Lipase 62 U/L (73-393) Urine Occult Blood TRACE (NEG) Urine Leukocyte Esterase SMALL (NEG) Urine Bacteria RARE /hpf (NONE) Neutrophils (%) (Auto) 72.9 % (16.0-70.0) Random Glucose 238 MG/DL (74-106) Test 01/02/18 05:50 01/03/18 06:30 Total Creatine Kinase 431 U/L (26-192) Troponin I 0.08 NG/ML (0.02-0.05) Monocytes (%) (Auto) 10.0 % (0.0-8.0) Imaging Last Impressions Abdomen/Pelvis CT 01/01/186 Signed Impressions: Service Date/Time: Monday, January 01, 2018 20:59 - CONCLUSION: 1. Ventral hernia near the umbilicus containing a small portion of the transverse colon without evidence for obstruction. 2. Previous cholecystectomy. Small renal parapelvic cysts. Previous fusion lower lumbar spine with laminectomy. Spinal stimulator wire present. Moderate coronary calcifications. Ky Holt MD Chest X-Ray 01/01/18 0000 Signed Impressions: Service Date/Time: Monday, January 01, 2018 19:26 - CONCLUSION: 1. No acute findings. Cardiomegaly. Ky Holt MD PE at Discharge GENERAL: Well-nourished, well-developed elderly female patient in [facility]. CARDIOVASCULAR: Regular rate and rhythm. S1, S2 noted. No murmur appreciated. RESPIRATORY: No accessory muscle use. Clear to auscultation. Breath sounds equal bilaterally. GASTROINTESTINAL: Abdomen soft, non-tender, nondistended. Normoactive bowel sounds x4. MUSCULOSKELETAL: No obvious deformities. Extremities without clubbing, cyanosis , or edema. NEUROLOGICAL: Awake and alert. No obvious cranial nerve deficits. Motor grossly within normal limits. 5/5 muscle strength in bilateral upper and lower extremities. Normal speech. PSYCHIATRIC: Appropriate mood and affect; insight and judgment normal. Pt update on day of discharge Feels improved. No nausea, no vomiting or diarrhea. No abdominal pain. She was able to eat and keep down food. She has no chest pain. No shortness of breath. Says she had an extensive workout up by her environmental health technician as outpatient recently. Feels comfortable to go home. Hospital Course 82-year-old female with history of HTN, HLD, DM, GERD, chronic back pain with dilaudid pump, presents with a 4 day history of abdominal pain, nausea/vomiting , and now diarrhea. Sepsis with Gastroenteritis: patient presented with abdominal pain/nausea/ vomiting/diarrhea, with outpatient fever 103. Meets sepsis criteria with WBC 14.3K, tachycardia HR 118, and suspect source-gastroenteritis. -CT abdomen/pelvis images reviewed, shows ventral hernia near the umbilicus containing a small portion of the transverse colon without evidence for obstruction. -Influenza negative, UA negative, CXR unremarkable -Lipase and LFTs wnl -Check stool studies and C.difficile -Supportive treatment with IVF hydration, antiemetics prn, pain control prn -Restart patient's bentyl qid -Start on PPI -Diet as tolerated -Monitor for improvement -Consider GI consult if no improvement Accelerated Hypertension: BP elevated to 205/95. -restart patient's home meds including metoprolol 25mg bid, imdur 60mg qd -monitor BP, adjust antihypertensives as needed Elevated Troponin: troponins elevated but flat at 0.09, 0.10, 0.08 -possibly secondary to demand ischemia from accelerated hypertension as above , vs chronic kidney disease -no complaints of chest pain -ECG reviewed, no acute ischemic changes -monitor on telemetry -continue aspirin, and patient's BB and imdur Diabetes Mellitus: chronic -monitor Accu-cheks and cover with SSI Hyperlipidemia: chronic -continue patient's statin Chronic Back Pain: has dilaudid pain pump, per the patient -continue pain pump and outpatient f/up DVT Prophylaxis: teds/SCDs Improved. No chest pain. No nausea or vomiting no diarrhea. Eating well. Discharge home with home health in stable condition to follow-up with PCP and consultants as outpatient. Pt Condition on Discharge: Stable Discharge Disposition: Disch w/ Home Health Serv Discharge Time: > 30 minutes Discharge Instructions DIET: Follow Instructions for: Heart Healthy Diet, Diabetic Diet Activities you can perform: Regular-No Restrictions Follow up Referrals: PCP Follow-up - 1 Week with Vicente Contreras DO New Medications: Bedside Commode (Bedside Commode) 1 Mis Mis EA .XX DIRECTED, #1 Calcium Carbonate (Antacid) (Tums) 500 Mg Chew 500 MG CHEW BID PRN for HEARTBURN, #20 TAB 0 Refills Ondansetron (Zofran) 4 Mg Tab 4 MG PO Q8HR PRN for NAUSEA OR VOMITING, #10 TAB 0 Refills Continued Medications: Aspirin (Aspirin Low Dose) 81 Mg Chew 81 MG CHEW DAILY, TAB 0 Refills Dicyclomine (Bentyl) 10 Mg Cap 10 MG PO QID for Bowel Management, CAP 0 Refills Gabapentin (Gabapentin) 100 Mg Cap 100 MG PO HS, #30 CAP 0 Refills Hydroxyzine HCl (Hydroxyzine HCl) 25 Mg Tab 25 MG PO TID, TAB 0 Refills Insulin Aspart Inj (Novolog Inj) 1,000 Unit/10 Ml Vial 0 SQ DIRECTED for Blood Sugar Management, #10 ML 0 Refills Sliding Scale as directed. Isosorbide Mononitrate ER (Isosorbide Mononitrate ER) 60 Mg Tab 60 MG PO DAILY for Prevent Chest Pain, #30 TAB 0 Refills Metoprolol Tartrate (Metoprolol Tartrate) 25 Mg Tab 25 MG PO BID, #60 TAB 0 Refills Omeprazole Magnesium (Prilosec) 20 Mg Tab 40 MG Rosuvastatin (Crestor) 5 Mg Tab 5 MG PO DAILY for Cholesterol Management, #30 TAB 0 Refills Ju Daniels MD Jan 03, 2018 08:28
[2018-01-03 08:31] LABS: CALCIUM 7.2 MG/DL (8.5-10.1); CREATININE 0.9 MG/DL (0.50-1.00); MAGNESIUM 1.7 MG/DL (1.5-2.5)
[2018-01-03] MEDS ORDERED: ISOSORBIDE MONONITRATE 60 MG CR TAB (IMDUR) PO SCH (09:00)
[2018-01-03] MEDS ORDERED: ASPIRIN 81 MG CHEW TAB CHEW SCH (09:00)
[2018-01-03] MEDS ORDERED: ATORVASTATIN 10 MG TAB PO SCH (09:00)
[2018-01-03 09:05] LABS: TOTAL PROTEIN 6.9 GM/DL (6.4-8.2)
[2018-01-03 09:25] LABS: CALCIUM-PROTEIN CORRECTED 7.3 MG/DL (8.5-10.1)
--- NOTE | 2018-01-03 09:44 | HHI.FF ---
Face to Face Verification Diagnosis: (1) Epigastric abdominal pain (2) Gastroenteritis Home Health Nursing Order: Medical education Signs/symptoms of disease process Medication education-adverse effect Nursing assessment with vital signs I have seen patient Olga Oconnell on 01/03/18. My clinical findings support the need for the requested home health care services because: Ltd mobility - disease progression Patient has SOB I certify that my clinical findings support that this patient is homebound because: Post-op weakness Unsteady gait/balance Ju Daniels MD Jan 03, 2018 09:44
[2018-01-03] MEDS ORDERED: TUMS500C CHEW (09:46)
[2018-01-03] MEDS ORDERED: ZOFR4TAB PO (09:46)
[2018-01-03] MEDS: hydrOXYzine HCL 25 MG TAB PO SCH (09:53)
[2018-01-03] MEDS: METOPROLOL TARTRATE 25 MG TAB PO SCH (09:53)
[2018-01-03] MEDS: DICYCLOMINE HCL 10 MG CAP PO SCH (09:53)
[2018-01-03] MEDS: SODIUM CHLORIDE 0.9% FLUSH 10 ML FLUSH IV FLUSH SCH (09:54)
[2018-01-03] MEDS: PANTOPRAZOLE SOD 40 MG DELAYED RELEASE TAB PO SCH (09:54)
[2018-01-03] MEDS: INSULIN ASPART SUPPLEMENTAL SCALE SQ SCH (09:55)
[2018-01-03] MEDS ORDERED: CALCIUM CARBONATE 1.25 GM (CA 500 MG) TAB PO ONE (10:15)
--- NOTE | 2018-01-03 11:45 | HHI.FF ---
Face to Face Verification Diagnosis: (1) HTN (hypertension) (2) Diabetes mellitus (3) HLD (hyperlipidemia) (4) GERD (gastroesophageal reflux disease) (5) Chronic back pain (6) Gastroenteritis (7) Elevated troponin (8) Epigastric abdominal pain Physical Therapy Order: Evaluate and Treat, Improve ambulation, Strength and gait training Occupational Therapy Order: Evaluate and Treat, Improve ADL, Gross motor coordination Home Health Nursing Order: Medical education Signs/symptoms of disease process Diabetic education Nursing assessment with vital signs Home Health Aide Order: To Assist In: Bathing and personal care, winding rack operator and meal prep Periodicals Library Assistant Order: To Evaluate: Living conditions/environment, Support services Order: To Provide: Long range planning, Community services I have seen patient Olga Oconnell on 01/03/18. My clinical findings support the need for the requested home health care services because: Ltd mobility - disease progression Deconditioned w/ increased weakness Limited ability to care for self Impaired cognition/judgement High risk of falls I certify that my clinical findings support that this patient is homebound because: Impaired cognitive ability/safety Unsteady gait/balance Unsafe to leave home unassisted Unable to use public transportation Raissa Mason PA-C Jan 03, 2018 11:45 Ju Daniels MD Jan 03, 2018 13:16
[2018-01-03] MEDS ORDERED: BEDSIDE COMMODE1 MI1 (12:17)
== END 2018-01-03 14:36 | disposition home or self-care (01) ==
LOC: NEPC 17:48 → NEDA 22:06 → NEDH 01-02 02:07 → NEPGCP 01-02 11:54
PROVIDERS: ADMIT Hospitalist; ATTEND Hospitalist
DX: A41.9 Sepsis, unspecified organism (principal); K52.9 Noninfective gastroenteritis and colitis, unspecified; K43.9 Ventral hernia without obstruction or gangrene; R06.02 Shortness of breath; R53.1 Weakness; R05 Cough; R74.8 Abnormal levels of other serum enzymes; I11.9 Hypertensive heart disease without heart failure; E11.9 Type 2 diabetes mellitus without complications; E78.00 Pure hypercholesterolemia, unspecified; K21.9 Gastro-esophageal reflux disease without esophagitis; N94.89 Other specified conditions associated with female genital organs and menstrual cycle; M54.9 Dorsalgia, unspecified; G89.29 Other chronic pain; Z79.899 Other long term (current) drug therapy; Z79.82 Long term (current) use of aspirin; Z98.1 Arthrodesis status
CPT/HCPCS: 71045; 74177; 80048; 80053; 81001; 82550; 82552; 82948; 83605; 83690; 83735; 84155; 84484; 85025; 85610; 85730; 87493; 87506; 87804; 93005; 96361; 96372; 96374; 97162; 99285; G0378; G8987; G8988; J1815; J2405; J7030; J7040; Q9967

== ENCOUNTER 2018-01-08 11:35 | Inpatient (IN) | payer MEDICARE, BC ==
[~2018-01-08] VITALS: Ht 157.5 cm; Wt 112.8 kg
[~2018-01-08 11:35] MED LIST: ASPI81CH6 PO; BEDSIDE COMMODE1 MI1; DICY10 PO; GABA100C4 PO; HYDR-3133 PO; ISOS60TA PO; METO25TA3 PO; NOVOLOGP2 SQ; PRIL20TA2; ROSU5 PO; TUMS500C CHEW; ZOFR4TAB PO
[2018-01-08 12:20] VITALS: BP 195/96; PULSE 125; RESP 22; TEMP 99.5; O2SAT 96
--- NOTE | 2018-01-08 13:23 | PD ---
HPI Chief Complaint: Syncope/Near-Syncope Time Seen by Provider: 13:11 Travel History International Travel<30 days: No Contact w/Intl Traveler<30days: No Traveled to known affect area: No History of Present Illness HPI 82y female with a history of uncontrolled diabetes with neuropathy, hypertension , GERD, epigastric pain, and chronic back pain with a pain pump presents to the emergency department for continued midepigastric pain and at the request of her home health care charge nurse for possible placement into a rehab facility. Says her midepigastric pain is constant, aching, and radiates to the back. Her pain is similar the pain she had upon discharge from the hospital but says she fell and her pain has been worse. Says she had low blood sugar about 0400 this morning but says the level was 371. She had associated lightheadedness and felt confused. Ate a candy bar while in bed last night as she thought this would help her symptoms. Says she passed out in bad and woke up around 0845 this morning. She went to the bathroom this morning, felt lightheaded and fell on a pile of laundry, bumping her lip onto her sink. Says she was able to control her fall by lowering herself with the sink. Denies LOC or blurred vision. Says she has felt feverish over the last few days but denies any now. Denies chest pain or shortness of breath. Says she uses a sliding scale insulin for her diabetes. PFSH Past Medical History Anxiety: Yes Depression: Yes Cancer: No High Cholesterol: Yes Congestive Heart Failure: No Diabetes: Yes GERD: Yes Genitourinary: No Hypertension: Yes Musculoskeletal: Yes (uses cane) Neurologic: No Reproductive: No Pneumonia: Yes Past Surgical History Cholecystectomy: Yes Hysterectomy: Yes Tonsillectomy: Yes Social History Alcohol Use: No Tobacco Use: No Substance Use: No Allergies-Medications (Allergen,Severity, Reaction): Coded Allergies: oxycodone (Verified Allergy, Severe, hives, 01/08/18) acetaminophen (Verified Allergy, Intermediate, rash, 01/08/18) celecoxib (Verified Allergy, Intermediate, rash, 01/08/18) meperidine (Verified Allergy, Intermediate, rash, 01/08/18) morphine (Verified Allergy, Intermediate, rash, 01/08/18) propoxyphene (Verified Allergy, Intermediate, rash, 01/08/18) Reported Meds & Prescriptions Reported Meds & Active Scripts Active Tums (Calcium Carbonate (Antacid)) 500 Mg Chew 500 Mg CHEW BID PRN Zofran (Ondansetron HCl) 4 Mg Tab 4 Mg PO Q8HR PRN Reported Gabapentin 300 Mg Cap 300 Mg PO DAILY Isosorbide Mononitrate ER (Isosorbide Mononitrate) 60 Mg Tab 60 Mg PO DAILY Novolog Inj (Insulin Aspart) 1,000 Unit/10 Ml Vial 30-45 Units SQ QID Metoprolol Tartrate 25 Mg Tab 25 Mg PO BID Aspirin Low Dose (Aspirin) 81 Mg Chew 81 Mg PO DAILY Bentyl (Dicyclomine HCl) 10 Mg Cap 10 Mg PO QID Review of Systems Except as stated in HPI: all other systems reviewed are Neg Physical Exam Narrative GENERAL: SKIN: Warm and dry. HEAD: Atraumatic. Normocephalic. EYES: Pupils equal and round. No scleral icterus. No injection or drainage. ENT: No nasal bleeding or discharge. Mucous membranes pink and moist. R TM- purulent fluid vs otosclerosis behind TM, erythematous. Canal with cerumen L TM- mild erythema of canal, TM with telagiectasia NECK: Trachea midline. No JVD. CARDIOVASCULAR: Regular rate and rhythm. RESPIRATORY: No accessory muscle use. Clear to auscultation. Breath sounds equal bilaterally. GASTROINTESTINAL: Abdomen soft, non-tender, nondistended. Hepatic and splenic margins not palpable. MUSCULOSKELETAL: Extremities without clubbing, cyanosis, or edema. No obvious deformities. NEUROLOGICAL: Awake and alert. No obvious cranial nerve deficits. Motor grossly within normal limits. Five out of 5 muscle strength in the arms and legs. Normal speech. PSYCHIATRIC: Appropriate mood and affect; insight and judgment normal. Data Data Last Documented VS Vital Signs Date Time Temp Pulse Resp B/P (MAP) Pulse Ox O2 Delivery O2 Flow Rate FiO2 01/08/18 16:27 98.2 102 18 135/82 (99) 98 Room Air Orders Orders Electrocardiogram (01/08/18 12:22) Ckmb (Isoenzyme) Profile (01/08/18 12:22) Complete Blood Count With Diff (01/08/18 12:22) Comprehensive Metabolic Panel (01/08/18 12:22) Prothrombin Time / Inr (Pt) (01/08/18 12:22) Act Partial Throm Time (Ptt) (01/08/18 12:22) Troponin I (01/08/18 12:22) Lipase (01/08/18 12:22) Chest, Pa & Lat (01/08/18 12:22) Pantoprazole Inj (Protonix Inj) (01/08/18 13:45) Sodium Chlorid 0.9% 500 Ml Inj (Ns 500 M (01/08/18 13:45) Urinalysis - C+S If Indicated (01/08/18 13:54) Sepsis Workup Initiated (01/08/18 ) Lactic Acid Sepsis Protocol (01/08/18 13:56) Blood Culture (01/08/18 13:56) CKMB (01/08/18 13:00) CKMB% (01/08/18 13:00) Vancomycin Inj (Vancomycin Inj) (01/08/18 15:00) Piperacil-Tazo 4.5 Gm Premix (Zosyn 4.5 (01/08/18 15:00) Cath For Specimen (01/08/18 16:15) Sodium Chlor 0.9% 1000 Ml Inj (Ns 1000 M (01/08/18 16:15) Sodium Chlor 0.9% 1000 Ml Inj (Ns 1000 M (01/08/18 16:15) Lactic Acid (01/08/18 16:28) Admit Order (Ed Use Only) (01/08/18 18:35) Labs Laboratory Tests Test 01/08/18 13:00 01/08/18 14:00 01/08/18 16:35 01/08/18 16:36 White Blood Count 18.0 TH/MM3 Red Blood Count 4.96 MIL/MM3 Hemoglobin 15.4 GM/DL Hematocrit 46.4 % Mean Corpuscular Volume 93.5 FL Mean Corpuscular Hemoglobin 31.1 PG Mean Corpuscular Hemoglobin Concent 33.3 % Red Cell Distribution Width 13.6 % Platelet Count 230 TH/MM3 Mean Platelet Volume 9.8 FL Neutrophils (%) (Auto) 77.2 % Lymphocytes (%) (Auto) 13.2 % Monocytes (%) (Auto) 8.9 % Eosinophils (%) (Auto) 0.4 % Basophils (%) (Auto) 0.3 % Neutrophils # (Auto) 13.9 TH/MM3 Lymphocytes # (Auto) 2.4 TH/MM3 Monocytes # (Auto) 1.6 TH/MM3 Eosinophils # (Auto) 0.1 TH/MM3 Basophils # (Auto) 0.0 TH/MM3 CBC Comment DIFF FINAL Differential Comment Prothrombin Time 10.2 SEC Prothromb Time International Ratio 1.0 RATIO Activated Partial Thromboplast Time 24.2 SEC Blood Urea Nitrogen 20 MG/DL Creatinine 1.21 MG/DL Random Glucose 128 MG/DL Total Protein 7.9 GM/DL Albumin 3.5 GM/DL Calcium Level 9.0 MG/DL Alkaline Phosphatase 59 U/L Aspartate Amino Transf (AST/SGOT) 22 U/L Alanine Aminotransferase (ALT/SGPT) 22 U/L Total Bilirubin 0.4 MG/DL Sodium Level 139 MEQ/L Potassium Level 5.1 MEQ/L Chloride Level 103 MEQ/L Carbon Dioxide Level 30.3 MEQ/L Anion Gap 6 MEQ/L Estimat Glomerular Filtration Rate 43 ML/MIN Total Creatine Kinase 129 U/L Creatine Kinase MB 2.1 NG/ML Troponin I 0.03 NG/ML Lipase 146 U/L Lactic Acid Level 2.2 mmol/L 1.4 mmol/L Urine Color YELLOW Urine Turbidity CLEAR Urine pH 7.5 Urine Specific [place] 1.015 Urine Protein NEG mg/dL Urine Glucose (UA) 300 mg/dL Urine Ketones NEG mg/dL Urine Occult Blood NEG Urine Nitrite NEG Urine Bilirubin NEG Urine Urobilinogen LESS THAN 2.0 MG/DL Urine Leukocyte Esterase NEG Urine RBC LESS THAN 1 /hpf Urine WBC LESS THAN 1 /hpf Urine Squamous Epithelial Cells 2 /hpf Microscopic Urinalysis Comment CULT NOT INDICATED MDM Medical Decision Making Medical Screen Exam Complete: Yes Emergency Medical Condition: Yes Differential Diagnosis Sepsis, dehydration, UTI Narrative Course 82-year-old female, rather poor historian, returns to the emergency department with worsening epigastric pain, dizziness, weakness. She contacted her home health care charge nurse and she recommended she return to the emergency department for possible placement into a rehab facility. Initial labs and imaging studies ordered. Added sepsis workup as patient has been feverish in combination with her dizziness and falls. EKG shows sinus tachycardia at rate 114, no STEMI changes. According to her note from 01/03 at her discharge, [facility] was ordered for her care at home. In addition, PT recommended her to go to a rehab facility upon discharge but unfortunately, pt did not meet criteria for placement as she only had a 2-day hospital stay. I spoke with case management who, based off of vital signs, recommended admission. I explained my concern for readmission and dispo but this may be an issue that is better addressed after inpatient treatment. From her last hospital visit, her influenza was negative. A GI specimen was also negative. She had a CT abdomen pelvis last admission which showed "1. Ventral hernia near umbilicus containing a small portion of the transverse colon without evidence for obstruction. 2. Previous cholecystectomy. Small renal parapelvic cyst. Previous fusion lower's lumbar spine with laminectomy. Spinal stimulator wire present. Moderate coronary calcifications." 2 L normal saline IV fluid administered judiciously as patient is 82 years old. Vancomycin and Zosyn administered. Pantoprazole for epigastric pain. Chest x-ray clear, urinalysis normal except for glycosuria. After discussion with the patient, patient states that she has had several mastoid surgeries previously for mastoiditis. I cannot find an obvious source for her sepsis. Consider malignant otitis media as a cause although this is not appear to be grossly obvious. Patient will be admitted to Dr. Aguirre for sepsis. Sepsis Criteria SIRS Criteria (2 or more): Heart rate over 90, WBC > 47392, < 4000 or > 10% bands Severe Sepsis (+one): Lactate >2 Diagnosis Primary Impression: Sepsis Qualified Codes: A41.9 - Sepsis, unspecified organism Admitting Information Admitting Physician Requests: Admit Condition: Stable Uma Evans Jan 08, 2018 13:23
[2018-01-08] MEDS ORDERED: PANTOPRAZOLE SODIUM 40 MG VIAL IV PUSH ONE (13:45)
[2018-01-08] MEDS ORDERED: SODIUM CHLORID 0.9% 500 ML INJ 500 ML IV ONE (13:45)
[2018-01-08] MEDS ORDERED: GABA300C5 PO (13:50)
[2018-01-08 13:57] VITALS: BP 187/92; PULSE 102; RESP 18; TEMP 97.8; O2SAT 98
[2018-01-08 14:11] LABS: AUTOMATED NEUTROPHIL # 13.9 TH/MM3 (1.8-7.7); BASOPHIL % 0.3 % (0.0-2.0); EOSINOPHIL # 0.1 TH/MM3 (0-0.4); EOSINOPHIL % 0.4 % (0.0-4.0); HEMATOCRIT 46.4 % (35.0-46.0); HEMOGLOBIN 15.4 GM/DL (11.6-15.3); LYMPH % 13.2 % (9.0-44.0); LYMPHOCYTE # 2.4 TH/MM3 (1.0-4.8); MEAN CELL VOLUME 93.5 FL (80.0-100.0); MEAN CORPUSCULAR HEMOGLOBIN 31.1 PG (27.0-34.0); MEAN CORPUSCULAR HGB CONC 33.3 % (32.0-36.0); MEAN PLATELET VOLUME 9.8 FL (7.0-11.0); MONO % 8.9 % (0.0-8.0); MONOCYTE # 1.6 TH/MM3 (0-0.9); NEUT % 77.2 % (16.0-70.0); PLATELET COUNT 230 TH/MM3 (150-450); RED BLOOD COUNT 4.96 MIL/MM3 (4.00-5.30); RED CELL DISTRIBUTION WIDTH 13.6 % (11.6-17.2)
[2018-01-08 14:21] LABS: PROTHROMBIN TIME - PATIENT 10.2 SEC (9.8-11.6)
[2018-01-08 14:24] LABS: ALT (GPT) 22 U/L (10-53)
--- NOTE | 2018-01-08 14:26 | PD ---
Physical Exam Date Seen by Provider: Jan 08, 2018 Narrative This patient presents basically because she is too weak to walk. She was recently admitted to the hospital for epigastric pain. She was subsequently discharged home. However, the patient states that she is not functioning very well at home and has become so weak that she has actually fallen at home. Data Data Last Documented VS Vital Signs Date Time Temp Pulse Resp B/P (MAP) Pulse Ox O2 Delivery O2 Flow Rate FiO2 01/08/18 13:57 97.8 102 18 187/92 (123) 98 Room Air Orders Orders Electrocardiogram (01/08/18 12:22) Ckmb (Isoenzyme) Profile (01/08/18 12:22) Complete Blood Count With Diff (01/08/18 12:22) Comprehensive Metabolic Panel (01/08/18 12:22) Prothrombin Time / Inr (Pt) (01/08/18 12:22) Act Partial Throm Time (Ptt) (01/08/18 12:22) Troponin I (01/08/18 12:22) Lipase (01/08/18 12:22) Chest, Pa & Lat (01/08/18 12:22) Pantoprazole Inj (Protonix Inj) (01/08/18 13:45) Sodium Chlorid 0.9% 500 Ml Inj (Ns 500 M (01/08/18 13:45) Urinalysis - C+S If Indicated (01/08/18 13:54) Sepsis Workup Initiated (01/08/18 ) Lactic Acid Sepsis Protocol (01/08/18 13:56) Blood Culture (01/08/18 13:56) Labs Laboratory Tests Test 01/08/18 13:00 White Blood Count 18.0 TH/MM3 Red Blood Count 4.96 MIL/MM3 Hemoglobin 15.4 GM/DL Hematocrit 46.4 % Mean Corpuscular Volume 93.5 FL Mean Corpuscular Hemoglobin 31.1 PG Mean Corpuscular Hemoglobin Concent 33.3 % Red Cell Distribution Width 13.6 % Platelet Count 230 TH/MM3 Mean Platelet Volume 9.8 FL Neutrophils (%) (Auto) 77.2 % Lymphocytes (%) (Auto) 13.2 % Monocytes (%) (Auto) 8.9 % Eosinophils (%) (Auto) 0.4 % Basophils (%) (Auto) 0.3 % Neutrophils # (Auto) 13.9 TH/MM3 Lymphocytes # (Auto) 2.4 TH/MM3 Monocytes # (Auto) 1.6 TH/MM3 Eosinophils # (Auto) 0.1 TH/MM3 Basophils # (Auto) 0.0 TH/MM3 CBC Comment DIFF FINAL Differential Comment Prothrombin Time 10.2 SEC Prothromb Time International Ratio 1.0 RATIO Activated Partial Thromboplast Time 24.2 SEC Alanine Aminotransferase (ALT/SGPT) 22 U/L MDM Supervised Visit with TORIE: Yes Narrative Course I, Dr. Dorman, have reviewed the advance practice practitioner's documentation and am in agreement, met with the patient face to face, made the diagnosis, and the medical decision making was done by me. *My assessment and Findings: Patient is awake and alert and fully oriented. She becomes tearful when giving me her history. Please see Uma Evans PA-C's note for further details, lab and radiology results, final diagnosis and disposition. Chapis Dorman MD Jan 08, 2018 14:26
[2018-01-08 14:27] LABS: ALBUMIN 3.5 GM/DL (3.4-5.0); AST (GOT) 22 U/L (15-37); BICARBONATE 30.3 MEQ/L (21.0-32.0); BLOOD UREA NITROGEN 20 MG/DL (7-18); CHLORIDE 103 MEQ/L (98-107); CREATININE 1.21 MG/DL (0.50-1.00); GLOMERULAR FILTRATION RATE 43 ML/MIN (>89); GLUCOSE,RANDOM 128 MG/DL (74-106); SODIUM (NA) 139 MEQ/L (136-145)
[2018-01-08 14:29] LABS: ALKALINE PHOSPHATASE 59 U/L (45-117); TOTAL BILIRUBIN ADULT 0.4 MG/DL (0.2-1.0); TOTAL PROTEIN 7.9 GM/DL (6.4-8.2); TROPONIN I 0.03 NG/ML (0.02-0.05)
--- NOTE | 2018-01-08 14:44 | RADRPT ---
EXAM DATE/TIME: 01/08/2018 14:17 [facility] COMPARISON: No previous studies available for comparison. INDICATIONS : Patient states chest pains. MEDICAL HISTORY : Gastroesophageal reflux disease. SURGICAL HISTORY : Hysterectomy. Cholecystectomy. ENCOUNTER: Initial ACUITY: 1 day PAIN SCORE: 5/10 LOCATION: Bilateral chest FINDINGS: PA and lateral views of the chest demonstrate the lungs to be symmetrically aerated without evidence of mass, infiltrate or effusion. The cardiomediastinal contours are unremarkable. Osseous structure s are intact. CONCLUSION: No acute disease. Sandeep Brown MD on January 08, 2018 at 14:39 Board Certified Radiologist. This report was verified electronically.
[2018-01-08 14:52] LABS: LACTIC ACID SEPSIS PROTOCOL 2.2 mmol/L (0.4-2.0)
[2018-01-08] MEDS ORDERED: VANCOMYCIN INJ 1,750 MG in SODIUM CHLORID 0.9% 500 ML INJ 500 ML IV ONE (15:00)
[2018-01-08] MEDS ORDERED: PIPERACIL-TAZO 4.5 GM PREMIX 100 ML IV ONE (15:00)
[2018-01-08] MEDS ORDERED: SODIUM CHLOR 0.9% 1000 ML INJ 1,000 ML IV ONE ×2 (16:15)
[2018-01-08 16:27] VITALS: BP 135/82; PULSE 102; RESP 18; TEMP 98.2; O2SAT 98
[2018-01-08 17:11] LABS: BILIRUBIN, URINE NEG (NEG); BLOOD, URINE NEG (NEG); GLUCOSE,URINE 300 mg/dL (NEG); KETONE, URINE NEG (NEG); NITRITE,URINE NEG (NEG); PH, URINE 7.5 (5.0-8.5); SQUAMOUS EPITHELIAL CELL URINE 2 /hpf (0-5); URINE COLOR YELLOW (YELLW/STRAW); URINE LEUKOCYTE ESTERASE NEG (NEG)
[2018-01-08] MEDS ORDERED: GLUCAGON 1 MG/ML VIAL OTHER PRN (18:45)
[2018-01-08] MEDS ORDERED: SODIUM CHLORIDE 0.9% FLUSH 10 ML FLUSH IV FLUSH PRN (18:45)
[2018-01-08] MEDS ORDERED: NALOXONE HCL 0.4 MG/ML AMP IV PUSH PRN (18:45)
[2018-01-08] MEDS ORDERED: DEXTROSE 50% IN WATER 50 ML VIAL(D50) IV PUSH PRN (18:45)
[2018-01-08 19:13] VITALS: BP_SYST 118; BP_SYST 164; BP_DIAS 68; BP_DIAS 77; PULSE 102; PULSE 97; RESP 15; TEMP 98.1; O2SAT 95; O2SAT 96
--- NOTE | 2018-01-08 19:52 | HHI.HP ---
HPI Service [facility] Primary Care Physician Vicente Contreras, DO Admission Diagnosis sepsis, weakness, dizziness Diagnoses: Travel History International Travel<30 Days: No Contact w/Intl Traveler <30 Da: No Traveled to Known Affected Are: No History of Present Illness hx from patient, ER communication, review of med records have been having nausea, vomiting, diarrhea did not improve since discharge from 01/[address] duarte as hospital follow up had fevers 99.5 today am highest was 101 BS was high at home as well at 400a.m BS dropped, confused, and took candy pill but blacked out wokeup at 900a.m. 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 4= between age of 14 and 26yo- total removal of right mastoid Allergies: Coded Allergies: oxycodone (Verified Allergy, Severe, hives, 01/08/18) acetaminophen (Verified Allergy, Intermediate, rash, 01/08/18) celecoxib (Verified Allergy, Intermediate, rash, 01/08/18) meperidine (Verified Allergy, Intermediate, rash, 01/08/18) morphine (Verified Allergy, Intermediate, rash, 01/08/18) propoxyphene (Verified Allergy, Intermediate, rash, 01/08/18) Family History mother - tashia, 93 yo sister- lung cancer brother- stomach cancer another brother- stomach cancer another sister- dm, GI perforation daughter- kidney failure- just about 1 month ago on Social History denies smoking/ etoh abuse/ drug abuse Physical Exam Vital Signs Vital Signs Date Time Temp Pulse Resp B/P (MAP) Pulse Ox O2 Delivery O2 Flow Rate FiO2 01/08/18 19:14 102 15 96 Room Air 01/08/18 19:13 98.1 102 15 164/77 (106) 96 Room Air 01/08/18 16:27 98.2 102 18 135/82 (99) 98 Room Air 01/08/18 13:57 97.8 102 18 187/92 (123) 98 Room Air 01/08/18 13:48 105 18 96 Room Air 01/08/18 12:20 99.5 125 22 195/96 (129) 96 Physical Exam GENERAL: This is a well-nourished, well-developed patient, in no apparent distress. SKIN: No rashes, ecchymoses or lesions. Cool and dry. HEAD: Atraumatic. Normocephalic. No temporal or scalp tenderness. EYES: No scleral icterus. No injection or drainage. ENT: Nose without bleeding, purulent drainage or septal hematoma. . Airway patent. NECK: Trachea midline. No JVD or lymphadenopathy. Supple, nontender, no meningeal signs. CARDIOVASCULAR: Regular rate and rhythm without murmurs, gallops, or rubs. RESPIRATORY: Clear to auscultation. Breath sounds equal bilaterally. No wheezes , rales, or rhonchi. GASTROINTESTINAL: Abdomen soft, non-tender, nondistended. No guarding. MUSCULOSKELETAL: Extremities without clubbing, cyanosis, or edema.No calf tenderness. NEUROLOGICAL: Awake and alert. Motor and sensory grossly within normal limits.Normal speech. Laboratory Laboratory Tests Test 01/08/18 13:00 01/08/18 14:00 01/08/18 16:35 01/08/18 16:36 White Blood Count 18.0 Red Blood Count 4.96 Hemoglobin 15.4 Hematocrit 46.4 Mean Corpuscular Volume 93.5 Mean Corpuscular Hemoglobin 31.1 Mean Corpuscular Hemoglobin Concent 33.3 Red Cell Distribution Width 13.6 Platelet Count 230 Mean Platelet Volume 9.8 Neutrophils (%) (Auto) 77.2 Lymphocytes (%) (Auto) 13.2 Monocytes (%) (Auto) 8.9 Eosinophils (%) (Auto) 0.4 Basophils (%) (Auto) 0.3 Neutrophils # (Auto) 13.9 Lymphocytes # (Auto) 2.4 Monocytes # (Auto) 1.6 Eosinophils # (Auto) 0.1 Basophils # (Auto) 0.0 CBC Comment DIFF FINAL Differential Comment Prothrombin Time 10.2 Prothromb Time International Ratio 1.0 Activated Partial Thromboplast Time 24.2 Blood Urea Nitrogen 20 Creatinine 1.21 Random Glucose 128 Total Protein 7.9 Albumin 3.5 Calcium Level 9.0 Alkaline Phosphatase 59 Aspartate Amino Transf (AST/SGOT) 22 Alanine Aminotransferase (ALT/SGPT) 22 Total Bilirubin 0.4 Sodium Level 139 Potassium Level 5.1 Chloride Level 103 Carbon Dioxide Level 30.3 Anion Gap 6 Estimat Glomerular Filtration Rate 43 Total Creatine Kinase 129 Creatine Kinase MB 2.1 Troponin I 0.03 Lipase 146 Lactic Acid Level 2.2 1.4 Urine Color YELLOW Urine Turbidity CLEAR Urine pH 7.5 Urine Specific [place] 1.015 Urine Protein NEG Urine Glucose (UA) 300 Urine Ketones NEG Urine Occult Blood NEG Urine Nitrite NEG Urine Bilirubin NEG Urine Urobilinogen LESS THAN 2.0 Urine Leukocyte Esterase NEG Urine RBC LESS THAN 1 Urine WBC LESS THAN 1 Urine Squamous Epithelial Cells 2 Microscopic Urinalysis Comment CULT NOT INDICATED Date/Time Source Procedure Growth Status 01/08/18 14:00 Blood Peripheral Aerobic Blood Culture Pending Received 01/08/18 14:00 Blood Peripheral Anaerobic Blood Culture Pending Received Result Diagram: 01/08/18 1300 01/08/18 1300 Caprini VTE Risk Assessment Caprini VTE Risk Assessment: Mod/High Risk (score >= 2) Caprini Risk Assessment Model Point Value = 1 Point Value = 2 Point Value = 3 Point Value = 5 Age 41-60 Minor surgery BMI > 25 kg/m2 Swollen legs Varicose veins or History of unexplained or recurrent spontaneous Oral contraceptives or hormone replacement Sepsis (< 1 month) Serious lung disease, including pneumonia (< 1 month) Abnormal pulmonary function Acute myocardial infarction Congestive heart failure (< 1 month) History of inflammatory bowel disease Medical patient at bed rest Age 61-74 Arthroscopic surgery Major open surgery (> 45 min) Laparoscopic surgery (> 45 min) Malignancy Confined to bed (> 72 hours) Immobilizing plaster cast Central venous access Age >= 75 History of VTE Family history of VTE Factor V Leiden Prothrombin [id number] Lupus anticoagulant Anticardiolipin antibodies Elevated serum homocysteine Heparin-induced thrombocytopenia Other congenital or acquired thrombophilia Stroke (< 1 month) Elective arthroplasty Hip, pelvis, or leg fracture Acute spinal cord injury (< 1 month) Prophylaxis Regimen Total Risk Factor Score Risk Level Prophylaxis Regimen 0-1 Low Early ambulation 2 Moderate Order ONE of the following: *Sequential Compression Device (SCD) *Heparin 5000 units SQ BID 3-4 Higher Order ONE of the following medications: *Heparin 5000 units SQ TID *Enoxaparin/Lovenox 40 mg SQ daily (WT < 150 kg, CrCl > 30 mL/min) *Enoxaparin/Lovenox 30 mg SQ daily (WT < 150 kg, CrCl > 10-29 mL/min) *Enoxaparin/Lovenox 30 mg SQ BID (WT < 150 kg, CrCl > 30 mL/min) AND/OR *Sequential Compression Device (SCD) 5 or more Highest Order ONE of the following medications: *Heparin 5000 units SQ TID (Preferred with Epidurals) *Enoxaparin/Lovenox 40 mg SQ daily (WT < 150 kg, CrCl > 30 mL/min) *Enoxaparin/Lovenox 30 mg SQ daily (WT < 150 kg, CrCl > 10-29 mL/min) *Enoxaparin/Lovenox 30 mg SQ BID (WT < 150 kg, CrCl > 30 mL/min) AND *Sequential Compression Device (SCD) Assessment and Plan Assessment and Plan Impression: SIRS. Suspect intra-abdominal etiology. Recent loss of her daughter Syncope secondary to hypoglycemic episodes Hypoglycemia. Likely secondary to medications. Patient was taking 30 units of NovoLog for blood sugar of 320 at 11 PM prior to sleeping. By 5 AM, patient had syncope. Hypertension Diabetes Coronary artery disease. Was told that it was mostly muscle spasms around her heart. But was started on isosorbide after this. History of frequent UTIs Plan: Patient received vancomycin and Zosyn in ER. I have reviewed her chart and did not see anywhere that patient was on steroids. Therefore I would have to take her leukocytosis with left shift as secondary to infection. UA is negative. We will follow blood culture results. Obtain ultrasound of the abdomen to rule out intra-abdominal etiologies. Patient did have CT abdomen and pelvis done on January 01 2018. It is personally reviewed. At this point, I would hold off on CT abdomen since her exam is quite benign and do not want to expose her to contrast studies in an elderly with chronic kidney disease. Stent stool studies. Stool for C. difficile. For now, continue Zosyn for anaerobic coverage and gram-negative coverage. Monitor fingersticks. Cover with low-dose sliding scale insulin. Patient would need education prior to discharge regarding using insulin as a sliding scale. 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 I do believe she was given high dose coverage upon discharge on 03 January. Resume rest of her home medications. PT evaluation. Case management consult. DVT prophylaxis on heparin. Discussed Condition With patient, ER physician, nursing staff Panda Aguirre MD Jan 08, 2018 19:52
[2018-01-08] MEDS ORDERED: NON-FORMULARY DRUG (Ondansetron (Zofran) 4 MG) PO PRN (20:00)
[2018-01-08] MEDS ORDERED: CALCIUM CARBONATE 500 MG CHEWABLE TAB CHEW PRN (20:00)
[2018-01-08] MEDS ORDERED: ONDANSETRON ODT 4 MG TAB PO PRN (20:30)
[2018-01-08] MEDS: INSULIN ASPART SUPPLEMENTAL SCALE SQ SCH (21:00)
[2018-01-08] MEDS: DICYCLOMINE HCL 10 MG CAP PO SCH (22:04)
[2018-01-08] MEDS: SODIUM CHLORIDE 0.9% FLUSH 10 ML FLUSH IV FLUSH SCH (22:05)
[2018-01-08] MEDS: METOPROLOL TARTRATE 25 MG TAB PO SCH (22:05)
[2018-01-08] MEDS ORDERED: PIPERACIL-TAZO 4.5 GM PREMIX 100 ML IV SCH (23:55)
[2018-01-09] VITALS (13 sets, daily range): BP systolic 145–193; BP diastolic 61–82; PULSE 89–114; RESP 16–22; TEMP 97.3–98.4; O2SAT 95–97
[2018-01-09] MEDS: PIPERACIL-TAZO 2.25 GM PREMIX 50 ML IV SCH ×5 (00:08→23:47)
[2018-01-09 03:56] LABS: AUTOMATED NEUTROPHIL # 8.7 TH/MM3 (1.8-7.7); BASOPHIL # 0.1 TH/MM3 (0-0.2); BASOPHIL % 0.6 % (0.0-2.0); EOSINOPHIL # 0.2 TH/MM3 (0-0.4); EOSINOPHIL % 1.6 % (0.0-4.0); HEMATOCRIT 41.2 % (35.0-46.0); HEMOGLOBIN 14.5 GM/DL (11.6-15.3); LYMPH % 23.9 % (9.0-44.0); LYMPHOCYTE # 3.1 TH/MM3 (1.0-4.8); MEAN CELL VOLUME 91.5 FL (80.0-100.0); MEAN CORPUSCULAR HEMOGLOBIN 32.1 PG (27.0-34.0); MEAN CORPUSCULAR HGB CONC 35.1 % (32.0-36.0); MONO % 7.8 % (0.0-8.0); NEUT % 66.1 % (16.0-70.0); PLATELET COUNT 194 TH/MM3 (150-450); RED CELL DISTRIBUTION WIDTH 13.4 % (11.6-17.2); WHITE BLOOD COUNT 13.1 TH/MM3 (4.0-11.0)
[2018-01-09 04:27] LABS: BICARBONATE 27.6 MEQ/L (21.0-32.0); CALCIUM 8.6 MG/DL (8.5-10.1); CREATININE 0.99 MG/DL (0.50-1.00)
[2018-01-09] MEDS ORDERED: traMADol HCL 50 MG TAB PO ONE ×2 (06:15→21:30)
--- NOTE | 2018-01-09 09:13 | RADRPT ---
EXAM DATE/TIME: 01/09/2018 07:54 [facility] COMPARISON: No previous studies available for comparison. INDICATIONS : Abdominal pain. MEDICAL HISTORY : Hypercholesterolemia. HTN. Pneumonia. GERD. Diabetes. Depression. Anxiety. SURGICAL HISTORY : Tonsillectomy. Cholecystectomy. Hysterectomy. Right ear surgery x4. ENCOUNTER: Initial ACUITY: 1 week PAIN SCORE: 8/10 LOCATION: Abdomen. MEASUREMENTS: LIVER: 13.9 cm length COMMON DUCT: 5 mm RIGHT KIDNEY: 11.3 x 5.4 x 6.5 cm LEFT KIDNEY: 11.1 x 5.1 x 4.8 cm SPLEEN: 7.7 cm length AORTA: 2.5cm maximal FINDINGS: LIVER: Normal echotexture without focal lesion or ductal dilatation. COMMON DUCT: No intraluminal mass or stone visualized. GALLBLADDER: Status post cholecystectomy. PANCREAS: The visualized portions are within normal limits. RIGHT KIDNEY: No hydronephrosis, stone or mass. LEFT KIDNEY: No hydronephrosis, stone or mass. SPLEEN: No focal lesion. AORTA: Non aneurysmal. Infrarenal abdominal aorta poorly visualized IVC: Within normal limits. CONCLUSION: 1. No evidence of acute process, suspicious mass or lymphadenopathy. 2. Status post cholecystectomy. 3. Infrarenal abdominal aorta maximally visualized. 4. No apparent cause for patient's abdominal pain. Juan Cerda MD on January 09, 2018 at 9:07 Board Certified Radiologist. This report was verified electronically.
[2018-01-09] MEDS: ISOSORBIDE MONONITRATE 60 MG CR TAB (IMDUR) PO SCH (09:23)
[2018-01-09] MEDS: DICYCLOMINE HCL 10 MG CAP PO SCH ×4 (09:23→21:20)
[2018-01-09] MEDS: GABAPENTIN 300 MG CAP PO SCH (09:23)
[2018-01-09] MEDS: HEPARIN SODIUM - SQ 10,000 UNITS/ML VIAL SQ SCH ×2 (09:24→21:20)
[2018-01-09] MEDS: METOPROLOL TARTRATE 25 MG TAB PO SCH ×2 (09:24→21:20)
[2018-01-09] MEDS: ASPIRIN 81 MG CHEW TAB PO SCH (09:24)
[2018-01-09] MEDS: INSULIN ASPART SUPPLEMENTAL SCALE SQ SCH ×4 (09:25→21:00)
[2018-01-09] MEDS: SODIUM CHLORIDE 0.9% FLUSH 10 ML FLUSH IV FLUSH SCH ×2 (09:33→21:19)
--- NOTE | 2018-01-09 15:44 | EKG ---
Date Performed: 01/08/2018 Time Performed: 12:51:20 PTAGE: 82 years EKG: SINUS TACHYCARDIA BORDERLINE LEFT AXIS DEVIATION ABNORMAL RHYTHM ECG Since the PREVIOUS TRACING , no significant change noted PREVIOUS TRACIN01/02/2018 09.43 DOCTOR: Ab Rudolph Interpretating Date/Time 01/09/2018 15:40:46
--- NOTE | 2018-01-09 19:21 | HHI.PR ---
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 She complains that she is uncomfortable on her current bed and wishes she could sit up. She was admitted for SIRS following a syncopal episode. Objective Vitals Vital Signs Date Time Temp Pulse Resp B/P (MAP) Pulse Ox O2 Delivery O2 Flow Rate FiO2 01/09/18 18:02 107 01/09/18 17:09 101 01/09/18 16:27 108 01/09/18 15:23 97.3 103 18 151/79 (103) 97 01/09/18 15:23 89 01/09/18 14:16 91 01/09/18 10:27 92 18 145/61 (89) 95 Room Air 01/09/18 09:38 106 19 193/82 (119) 96 Room Air 01/09/18 05:55 102 22 151/67 (95) 96 Room Air 01/08/18 19:14 102 15 96 Room Air 01/08/18 19:13 98.1 102 15 164/77 (106) 96 Room Air I/O 01/08/18 01/08/18 01/08/18 01/09/18 01/09/18 01/09/18 07:00 15:00 23:00 07:00 15:00 23:00 Intake Total 0 ml 3117.5 ml 50 ml 290 ml Output Total 250 ml Balance 0 ml 3117.5 ml 50 ml 40 ml Intake Oral 240 ml IV Total 0 ml 3117.5 ml 50 ml 50 ml Output Urine Total 250 ml # Bowel Movements 0 Result Diagram: 01/09/18 0334 01/09/18 0334 Objective Remarks GENERAL: Obese, weak appearing, pale SKIN: Warm and dry. HEAD: Normocephalic. EYES: No scleral icterus. No injection or drainage. NECK: Supple, trachea midline. No JVD or lymphadenopathy. CARDIOVASCULAR: Borderline tachycardia without murmurs, gallops, or rubs. RESPIRATORY: Breath sounds equal bilaterally. No accessory muscle use. GASTROINTESTINAL: Abdomen soft, mild tenderness to palpation of right upper quadrant, nondistended. EXTREMITIES: No cyanosis, or edema. NEUROLOGICAL: Awake, alert, and oriented x 3. Non-focal. A/P Problem List: (1) Abdominal pain ICD Code: R10.9 - Unspecified abdominal pain (2) Generalized weakness ICD Code: R53.1 - Weakness Assessment and Plan Abdominal pain Right upper quadrant is tender and colicky according to patient Patient met criteria for SIRS on admission Stool studies including C. difficile toxin are pending Abdominal ultrasound was within normal limits CT abdomen is pending Continue on IV Zosyn Gastroenterology consulted Syncopal episode Possibly related to hypoglycemia Patient takes 30 units of NovoLog at 11 PM last night prior to sleeping (sugar was 320) by 5 AM she had syncope Type 2 diabetes Accu-Cheks with sliding scale coverage Diabetic diet Coronary artery disease Patient takes isosorbide Recurrent urinary tract infections No current infection Hypertension Continue home meds DVT prophylaxis Heparin Holden Pierre MD Jan 09, 2018 19:21
[2018-01-09] MEDS ORDERED: TEMAZEPAM 7.5 MG CAP PO ONE (21:30)
[2018-01-10] VITALS (27 sets, daily range): BP systolic 127–158; BP diastolic 71–91; PULSE 80–113; RESP 16–18; TEMP 97.6–98.7; O2SAT 94–98
[2018-01-10] MEDS: PIPERACIL-TAZO 2.25 GM PREMIX 50 ML IV SCH ×4 (05:02→23:36)
[2018-01-10 06:55] LABS: HEMATOCRIT 41.1 % (35.0-46.0); HEMOGLOBIN 13.5 GM/DL (11.6-15.3); MEAN CELL VOLUME 94.5 FL (80.0-100.0); MEAN CORPUSCULAR HEMOGLOBIN 31.1 PG (27.0-34.0); MEAN CORPUSCULAR HGB CONC 32.9 % (32.0-36.0); MEAN PLATELET VOLUME 10.5 FL (7.0-11.0); PLATELET COUNT 185 TH/MM3 (150-450); RED BLOOD COUNT 4.35 MIL/MM3 (4.00-5.30); RED CELL DISTRIBUTION WIDTH 13.2 % (11.6-17.2); WHITE BLOOD COUNT 8.4 TH/MM3 (4.0-11.0)
[2018-01-10 07:03] LABS: BICARBONATE 25.2 MEQ/L (21.0-32.0); CALCIUM 8.5 MG/DL (8.5-10.1); CREATININE 0.99 MG/DL (0.50-1.00)
[2018-01-10] MEDS: INSULIN ASPART SUPPLEMENTAL SCALE SQ SCH ×2 (08:00→22:49)
[2018-01-10] MEDS: SODIUM CHLORIDE 0.9% FLUSH 10 ML FLUSH IV FLUSH SCH ×2 (09:00→22:48)
[2018-01-10] MEDS: GABAPENTIN 300 MG CAP PO SCH (09:51)
[2018-01-10] MEDS: ASPIRIN 81 MG CHEW TAB PO SCH (09:51)
[2018-01-10] MEDS: ISOSORBIDE MONONITRATE 60 MG CR TAB (IMDUR) PO SCH (09:51)
[2018-01-10] MEDS: DICYCLOMINE HCL 10 MG CAP PO SCH ×4 (09:51→22:48)
[2018-01-10] MEDS: METOPROLOL TARTRATE 25 MG TAB PO SCH ×2 (09:52→22:48)
[2018-01-10] MEDS: HEPARIN SODIUM - SQ 10,000 UNITS/ML VIAL SQ SCH ×2 (09:53→22:48)
--- NOTE | 2018-01-10 11:01 | RADRPT ---
EXAM DATE/TIME: 01/10/2018 10:27 [facility] COMPARISON: No previous studies available for comparison. INDICATIONS : Abdominal pain. ORAL CONTRAST: No oral contrast ingested. RADIATION DOSE: 16.95 CTDIvol (mGy) MEDICAL HISTORY : Hypertension. Diabetes mellitus type 2. SURGICAL HISTORY : Cholecystectomy. Hysterectomy. ENCOUNTER: Initial ACUITY: 1 day PAIN SCALE: 2/10 LOCATION: abdomen TECHNIQUE: Volumetric scanning of the abdomen and pelvis was performed. Using automated exposure control and ad justment of the mA and/or kV according to patient size, radiation dose was kept as low as reasonably achievable to obtain optimal diagnostic quality images. DICOM format image data is available electro nically for review and comparison. FINDINGS: LOWER LUNGS: Mild infiltrate in the left lung base LIVER: Homogeneous density without lesion. There is no dilation of the biliary tree. Gallbladder surgically absent. SPLEEN: Normal size without lesion. PANCREAS: Within normal limits. KIDNEYS: Normal in size and shape. There is no mass, stone, or hydronephrosis. ADRENAL GLANDS: Within normal limits. VASCULAR: There is no aortic aneurysm. BOWEL/MESENTERY: The stomach, small bowel, and colon demonstrate no acute abnormality. There is no free intraperitone al air or fluid. ABDOMINAL WALL: Small umbilical hernia containing a knuckle of colon. Mild indurative changes. RETROPERITONEUM: There is no lymphadenopathy. BLADDER: No wall thickening or mass. REPRODUCTIVE: Uterus surgically absent. No evidence of pelvic mass or free fluid. INGUINAL: There is no lymphadenopathy or hernia. MUSCULOSKELETAL: Spinal stimulator with control pack over the right iliac crest. Previous lumbar hardware fusion. Dege nerative changes. CONCLUSION: Small umbilical hernia containing a knuckle of colon. Mild left lung base infiltrate. Osorio Mireles MD on January 10, 2018 at 10:54 Board Certified Radiologist. This report was verified electronically.
--- NOTE | 2018-01-10 12:56 | PD.CONS ---
HPI History of Present Illness This is a 82 year old F with HTN, CAD, IBS, and uncontrolled DM. Pt reports a syncopal episode at home, states felt her blood sugar dropping so she tried eating a candy bar, woke up on the floor with the candy bar next to her. Once she resumed consciousness she tried to make her way to the bathroom where she got weak and fell again. Our service has been consulted to evaluate pt for complaints of epigastric pain, nausea, and vomiting. Pt was previously seen at [facility] with same complaints and discharged home with instruction for symptomatic care. Pt reports nausea and vomiting began after the fall in her bathroom, last vomited two days ago, denies hematemesis and coffee ground emesis. States epigastric pain is sharp and stabbing, fairly constant, worse with palpation. Denies any changes in bowel habits, states had a normal BM a few minutes prior to my exam. CT abdomen and pelvis W/O IV contrast (01/10) --> Small umbilical hernia containing a knuckle of colon. Pt reports last EGD and colonoscopy approx 3 years ago, normal EGD and polyps in the colon. 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 sx x 4= between age of 14 and 26yo- total removal of right mastoid (Tona Beckwith) Coded Allergies: oxycodone (Verified Allergy, Severe, hives, 01/08/18) acetaminophen (Verified Allergy, Intermediate, rash, 01/08/18) celecoxib (Verified Allergy, Intermediate, rash, 01/08/18) meperidine (Verified Allergy, Intermediate, rash, 01/08/18) morphine (Verified Allergy, Intermediate, rash, 01/08/18) propoxyphene (Verified Allergy, Intermediate, rash, 01/08/18) Family History mother - alziemers, 93 yo sister- lung cancer brother- stomach cancer another brother- stomach cancer another sister- dm, GI perforation daughter- kidney failure- just about 1 month ago on (Tona Beckwith) Review of Systems Gastrointestinal: COMPLAINS OF: Abdominal pain, Nausea, Vomiting, DENIES: Black stools, Bloody stools, Constipation, Diarrhea, Difficulty Swallowing, Odynophagia, Swelling of Abdomen, Heartburn, Hematemesis (Tona Beckwith) GI Exam Vitals I&O Vital Signs Date Time Temp Pulse Resp B/P (MAP) Pulse Ox O2 Delivery O2 Flow Rate FiO2 01/10/18 07:40 97.8 96 16 131/91 (104) 98 01/10/18 06:00 86 01/10/18 05:00 91 01/10/18 04:00 89 01/10/18 03:00 97.6 87 18 135/71 (92) 96 01/10/18 03:00 87 01/10/18 02:00 86 01/10/18 01:00 80 01/10/18 00:00 98.0 94 18 127/78 (94) 95 01/10/18 00:00 96 01/09/18 23:00 94 01/09/18 22:00 114 01/09/18 21:00 102 01/09/18 20:00 98.4 100 16 156/80 (105) 97 01/09/18 20:00 100 01/09/18 19:00 112 01/09/18 18:02 107 01/09/18 17:09 101 01/09/18 16:27 108 01/09/18 15:23 97.3 103 18 151/79 (103) 97 01/09/18 15:23 89 01/09/18 14:16 91 I/O 01/09/18 01/09/18 01/09/18 01/10/18 01/10/18 01/10/18 07:00 15:00 23:00 07:00 15:00 23:00 Intake Total 50 ml 290 ml 340 ml Output Total 250 ml 900 ml Balance 50 ml 40 ml -560 ml Intake Oral 240 ml 240 ml IV Total 50 ml 50 ml 100 ml Output Urine Total 250 ml 900 ml # Bowel Movements 0 0 Imaging Last Impressions Abdomen/Pelvis CT 01/10/18 0600 Signed Impressions: Service Date/Time: Wednesday, January 10, 2018 10:27 - CONCLUSION: Small umbilical hernia containing a knuckle of colon. Mild left lung base infiltrate. Osorio Mireles MD Abdomen Ultrasound 01/09/18 2300 Signed Impressions: Service Date/Time: Tuesday, January 09, 2018 07:54 - CONCLUSION: 1. No evidence of acute process, suspicious mass or lymphadenopathy. 2. Status post cholecystectomy. 3. Infrarenal abdominal aorta maximally visualized. 4. No apparent cause for patient's abdominal pain. Juan Cerda MD Chest X-Ray 01/08/18 1222 Signed Impressions: Service Date/Time: Monday, January 08, 2018 14:17 - CONCLUSION: No acute disease. Sandeep Brown MD Laboratory Test 01/10/18 06:18 White Blood Count 8.4 TH/MM3 Red Blood Count 4.35 MIL/MM3 Hemoglobin 13.5 GM/DL Hematocrit 41.1 % Mean Corpuscular Volume 94.5 FL Mean Corpuscular Hemoglobin 31.1 PG Mean Corpuscular Hemoglobin Concent 32.9 % Red Cell Distribution Width 13.2 % Platelet Count 185 TH/MM3 Mean Platelet Volume 10.5 FL Blood Urea Nitrogen 14 MG/DL Creatinine 0.99 MG/DL Random Glucose 315 MG/DL Calcium Level 8.5 MG/DL Sodium Level 136 MEQ/L Potassium Level 4.5 MEQ/L Chloride Level 102 MEQ/L Carbon Dioxide Level 25.2 MEQ/L Anion Gap 9 MEQ/L Estimat Glomerular Filtration Rate 54 ML/MIN Date/Time Source Procedure Growth Status 01/08/18 14:00 Blood Peripheral Aerobic Blood Culture - Preliminary NO GROWTH IN 2 DAYS Resulted 01/08/18 14:00 Blood Peripheral Anaerobic Blood Culture - Preliminary NO GROWTH IN 2 DAYS Resulted Physical Examination HEENT: Normocephalic; atraumatic CHEST: Even/unlabored CARDIAC: RRR ABDOMEN: Soft, nondistended, epigastric TTP; bowel sounds active SKIN: Normal; no rash; no jaundice. SODIUM METHYLATE OPERATOR: No focal deficits; alert and oriented times three. (Tona Beckwith) Assessment and Plan Plan Assessment: - Epigastric pain, TTP, described as sharp and stabbing pain, fairly constant. Associated nausea and vomiting, last vomited two days ago, denies hematemesis and coffee ground emesis. Seen at [facility] a few days ago for same, DCd with instructions of symptomatic care. Last EGD 3 years ago- states normal Denies ETOH, smoking, NSAIDs CT abdomen and pelvis W/O IV contrast --> Small umbilical hernia containing a knuckle of colon. S/P cholecystectomy - History of IBS, denies any symptoms, normal BMs states one just prior to my exam. 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 Perkins and this note is written on his behalf (Tona Beckwith) Physician Comments Patient seen and examined Agree with above Continue with current supportive care Monitor labs Plan for an EGD tomorrow (Quentin Perkins MD) Tona Beckwith Jan 10, 2018 12:56 Quentin Perkins MD Jan 10, 2018 21:09
--- NOTE | 2018-01-10 13:23 | HHI.PR ---
Subjective Remarks Patient reports abdominal pain is improved. No nausea or vomiting. Patient reports her neuropathy is worse. Not steady on her feet. States she needs rehab. Objective Vitals Vital Signs Date Time Temp Pulse Resp B/P (MAP) Pulse Ox O2 Delivery O2 Flow Rate FiO2 01/10/18 12:00 102 01/10/18 11:00 106 01/10/18 10:00 110 01/10/18 09:00 104 01/10/18 08:00 92 01/10/18 07:40 97.8 96 16 131/91 (104) 98 01/10/18 07:00 90 01/10/18 06:00 86 01/10/18 05:00 91 01/10/18 04:00 89 01/10/18 03:00 97.6 87 18 135/71 (92) 96 01/10/18 03:00 87 01/10/18 02:00 86 01/10/18 01:00 80 01/10/18 00:00 98.0 94 18 127/78 (94) 95 01/10/18 00:00 96 01/09/18 23:00 94 01/09/18 22:00 114 01/09/18 21:00 102 01/09/18 20:00 98.4 100 16 156/80 (105) 97 01/09/18 20:00 100 01/09/18 19:00 112 01/09/18 18:02 107 01/09/18 17:09 101 01/09/18 16:27 108 01/09/18 15:23 97.3 103 18 151/79 (103) 97 01/09/18 15:23 89 01/09/18 14:16 91 I/O 01/09/18 01/09/18 01/09/18 01/10/18 01/10/18 01/10/18 07:00 15:00 23:00 07:00 15:00 23:00 Intake Total 50 ml 290 ml 340 ml Output Total 250 ml 900 ml Balance 50 ml 40 ml -560 ml Intake Oral 240 ml 240 ml IV Total 50 ml 50 ml 100 ml Output Urine Total 250 ml 900 ml # Bowel Movements 0 0 Result Diagram: 01/10/1861701/10/18617 Objective Remarks GENERAL: Obese female in no apparent distress. CARDIOVASCULAR: Normal rate and regular rhythm without murmurs, gallops, or rubs. RESPIRATORY: Good respiratory efforts. Breath sounds equal and clear to auscultation bilaterally. GASTROINTESTINAL: Abdomen soft, non-tender, non-distended. Normal active bowel sounds MUSCULOSKELETAL: Extremities without cyanosis, or edema. NEURO: Alert & Oriented x4 to person, place, time, situation. Moves all ext x4. Generalized weakness PSYCH: Appropriate mood and affect. A/P Problem List: (1) Abdominal pain ICD Code: R10.9 - Unspecified abdominal pain (2) Generalized weakness ICD Code: R53.1 - Weakness Assessment and Plan Abdominal pain Right upper quadrant is tender and colicky according to patient Patient met criteria for SIRS on admission Significantly improved. Patient reports prior to admission she had an episode of diarrhea for a day but she took Imodium to stop the diarrhea. Suspect gastroenteritis that has been delayed secondary to antimotility medications. CT abdomen shows hernia. Otherwise unremarkable Continue on IV Zosyn Gastroenterology following and planning for EGD. Syncopal episode Possibly related to hypoglycemia Patient takes 30 units of NovoLog at 11 PM last night prior to sleeping (sugar was 320) by 5 AM she had syncope Neurologically intact except for generalized weakness. Type 2 diabetes Accu-Cheks with sliding scale coverage Diabetic diet Coronary artery disease Patient takes isosorbide Recurrent urinary tract infections No current infection Hypertension Continue home meds DVT prophylaxis Heparin Discharge Planning Plan for discharge to SNF in the next 24-48 hours pending clinical course. Yoni Hutchins MD Jan 10, 2018 13:23
[2018-01-10] MEDS ORDERED: GLUCAGON 1 MG/ML VIAL OTHER PRN (14:00)
[2018-01-10] MEDS ORDERED: DEXTROSE 50% IN WATER 50 ML VIAL(D50) IV PUSH PRN (14:00)
[2018-01-10] MEDS: MEDIUM DOSE INSULIN NOVOLOG SUPPLEMENTAL SCALE SQ SCH ×2 (14:00→18:00)
[2018-01-10] MEDS: traMADol HCL 50 MG TAB PO PRN (23:30)
[2018-01-11] VITALS (22 sets, daily range): BP systolic 134–175; BP diastolic 70–90; PULSE 68–95; RESP 16–20; TEMP 97.7–98; O2SAT 95–98
[2018-01-11] MEDS: PIPERACIL-TAZO 2.25 GM PREMIX 50 ML IV SCH ×2 (05:40→11:09)
[2018-01-11] MEDS ORDERED: INSULIN ASPART SUPPLEMENTAL SCALE SQ SCH (08:00)
[2018-01-11] MEDS: INSULIN ASPART SUPPLEMENTAL SCALE SQ SCH ×4 (08:00→20:17)
[2018-01-11] MEDS: SODIUM CHLORIDE 0.9% FLUSH 10 ML FLUSH IV FLUSH SCH ×2 (09:00→20:51)
[2018-01-11] MEDS: ASPIRIN 81 MG CHEW TAB PO SCH (11:06)
[2018-01-11] MEDS: ISOSORBIDE MONONITRATE 60 MG CR TAB (IMDUR) PO SCH (11:06)
[2018-01-11] MEDS: DICYCLOMINE HCL 10 MG CAP PO SCH ×4 (11:06→20:52)
[2018-01-11] MEDS: METOPROLOL TARTRATE 25 MG TAB PO SCH ×2 (11:06→20:51)
[2018-01-11] MEDS: GABAPENTIN 300 MG CAP PO SCH ×3 (11:07→20:51)
[2018-01-11] MEDS ORDERED: LIDOCAINE HCL 1% PF 5 ML SYRINGE OTHER ONE (12:00)
[2018-01-11] MEDS ORDERED: PROPOFOL 200 MG/20 ML AMP IV ONE (12:00)
[2018-01-11] MEDS ORDERED: PHENYLEPH/NS 1000 MCG/10 ML SYR IV ONE (12:00)
--- NOTE | 2018-01-11 12:09 | HHI.PR ---
Subjective Remarks Patient is awaiting to have EGD. She reports abdominal pain is improved. Objective Vitals Vital Signs Date Time Temp Pulse Resp B/P (MAP) Pulse Ox O2 Delivery O2 Flow Rate FiO2 01/11/18 07:25 97.7 95 18 151/90 (110) 95 01/11/18 06:00 84 01/11/18 05:00 86 01/11/18 04:00 85 01/11/18 03:00 98.0 86 18 134/70 (91) 97 01/11/18 03:00 86 01/11/18 02:00 83 01/11/18 01:00 81 01/11/18 00:00 87 01/10/18 23:00 83 01/10/18 23:00 98.0 105 18 158/72 (100) 95 01/10/18 22:00 84 01/10/18 21:00 84 01/10/18 20:00 98.2 113 16 156/79 (104) 95 01/10/18 20:00 81 01/10/18 19:00 87 01/10/18 18:00 108 01/10/18 17:00 108 01/10/18 16:00 108 01/10/18 15:10 98.7 104 16 134/88 (103) 98 01/10/18 15:00 102 01/10/18 14:00 104 01/10/18 13:00 86 I/O 01/10/18 01/10/18 01/10/18 01/11/18 01/11/18 01/11/18 07:00 15:00 23:00 07:00 15:00 23:00 Intake Total 340 ml 790 ml 240 ml Output Total 900 ml 520 ml 900 ml Balance -560 ml 270 ml -660 ml Intake Oral 240 ml 790 ml 240 ml IV Total 100 ml Output Urine Total 900 ml 520 ml 900 ml # Bowel Movements 0 Result Diagram: 01/10/1861701/10/18617 Objective Remarks GENERAL: Obese female in no apparent distress. CARDIOVASCULAR: Normal rate and regular rhythm without murmurs, gallops, or rubs. RESPIRATORY: Good respiratory efforts. Breath sounds equal and clear to auscultation bilaterally. GASTROINTESTINAL: Abdomen soft, mild discomfort in the midepigastric region. Normal active bowel sounds MUSCULOSKELETAL: Extremities without cyanosis, or edema. NEURO: Alert & Oriented x4 to person, place, time, situation. Moves all ext x4. Generalized weakness PSYCH: Appropriate mood and affect. A/P Problem List: (1) Abdominal pain ICD Code: R10.9 - Unspecified abdominal pain (2) Generalized weakness ICD Code: R53.1 - Weakness Assessment and Plan Abdominal pain Right upper quadrant is tender and colicky according to patient Patient met criteria for SIRS on admission Significantly improved. Patient reports prior to admission she had an episode of diarrhea for a day but she took Imodium to stop the diarrhea. Suspect gastroenteritis that has been delayed secondary to antimotility medications. CT abdomen shows hernia. Otherwise unremarkable Continue on IV Zosyn Gastroenterology following and planning for EGD. Syncopal episode Possibly related to hypoglycemia Patient takes 30 units of NovoLog at 11 PM last night prior to sleeping (sugar was 320) by 5 AM she had syncope Neurologically intact except for generalized weakness from physical deconditioning. Type 2 diabetes Accu-Cheks with sliding scale coverage Diabetic diet Coronary artery disease Patient takes isosorbide Recurrent urinary tract infections No current infection Hypertension Continue home meds DVT prophylaxis Heparin Discharge Planning Plan for discharge to SNF tomorrow based on EGD findings. Yoni Hutchins MD Jan 11, 2018 12:09
[2018-01-11] MEDS ORDERED: cloNIDine HCL 0.1 MG TAB PO PRN (16:00)
[2018-01-11] MEDS ORDERED: DO NOT ADM ANY ANTICOAGULANT DRUGS PRN (18:05)
--- NOTE | 2018-01-11 18:22 | PD.PROCEDR ---
GI Procedure PROCEDURE PERFORMED EGD with biopsy INDICATION FOR PROCEDURE Epigastric pain PROCEDURE: The procedure, risks and benefits were discussed with Ms. Drake and informed consent was obtained. Anesthesia sedated her with Diprivan. She was placed in the left lateral decubitus position. EGD: The Pentax videoscope was introduced through the oropharynx and advanced to the second portion of the duodenum under direct visualization. Retroflexion was performed in the stomach. FINDINGS: The esophagus this was normal The stomach the gastric mucosa appeared to have punctate and patchy erythema throughout the gastric body and antrum no ulcerations no erosions no blood or bleeding antral biopsies were taken for further evaluation The duodenum this was normal ESTIMATED BLOOD LOSS: None SPECIMENS REMOVED: Antral biopsies COMPLICATIONS: None IMPRESSION: Gastritis PLAN: Await biopsies Recommend Protonix 40 mg daily Dietary modification Probiotics Follow-up with GI post discharge Okay for discharge from a GI standpoint Not much to add from a GI perspective we will sign off Quentin Perkins MD Jan 11, 2018 18:22
[2018-01-11] MEDS: traMADol HCL 50 MG TAB PO PRN (23:13)
[2018-01-12] VITALS (23 sets, daily range): BP systolic 134–162; BP diastolic 70–90; PULSE 76–94; RESP 18–20; TEMP 97.6–98.2; O2SAT 97–98
[2018-01-12] MEDS ORDERED: GABA300C5 PO (08:36)
[2018-01-12] MEDS ORDERED: TRAM50 PO (08:36)
[2018-01-12] MEDS ORDERED: PANT40TA3 PO (08:36)
--- NOTE | 2018-01-12 08:38 | HHI.DS ---
Discharge Summary Admission Date Jan 08, 2018 at 18:36 Admitting Diagnosis sepsis, weakness, dizziness (1) Abdominal pain ICD Code: R10.9 - Unspecified abdominal pain (2) Generalized weakness ICD Code: R53.1 - Weakness Brief History - From Admission hx from patient, ER communication, review of med records have been having nausea, vomiting, diarrhea did not improve since discharge from 01/[address] duarte as hospital follow up had fevers 99.5 today am highest was 101 BS was high at home as well at 400a.m BS dropped, confused, and took candy pill but blacked out wokeup at 900a.m. got up and went to bathroom, room started spinning grab sink and passed out again did not hit head because bag of laundry was there no cough diarrhea urine smell epigastric pains urine retained in er today 500cc CBC/BMP: 01/10/18 0618 01/10/18 0618 Significant Findings Laboratory Tests Test 01/10/18 06:18 Random Glucose 315 MG/DL (74-106) Estimat Glomerular Filtration Rate 54 ML/MIN (>89) PE at Discharge GENERAL: Obese female in no apparent distress. CARDIOVASCULAR: Normal rate and regular rhythm without murmurs, gallops, or rubs. RESPIRATORY: Good respiratory efforts. Breath sounds equal and clear to auscultation bilaterally. GASTROINTESTINAL: Abdomen soft, mild discomfort in the midepigastric region. Normal active bowel sounds MUSCULOSKELETAL: Extremities without cyanosis, or edema. NEURO: Alert & Oriented x4 to person, place, time, situation. Moves all ext x4. Generalized weakness PSYCH: Appropriate mood and affect. Pt Condition on Discharge: Good Discharge Disposition: Discharge to SNF Discharge Instructions DIET: Follow Instructions for: Heart Healthy Diet Activities you can perform: Regular-No Restrictions Yoni Hutchins MD Jan 12, 2018 08:38
[2018-01-12] MEDS: INSULIN ASPART SUPPLEMENTAL SCALE SQ SCH ×4 (08:55→20:12)
[2018-01-12] MEDS: GABAPENTIN 300 MG CAP PO SCH ×3 (08:56→16:57)
[2018-01-12] MEDS: METOPROLOL TARTRATE 25 MG TAB PO SCH ×2 (08:56→20:01)
[2018-01-12] MEDS: ASPIRIN 81 MG CHEW TAB PO SCH (08:56)
[2018-01-12] MEDS: ISOSORBIDE MONONITRATE 60 MG CR TAB (IMDUR) PO SCH (08:56)
[2018-01-12] MEDS: DICYCLOMINE HCL 10 MG CAP PO SCH ×4 (08:56→20:01)
[2018-01-12] MEDS: PANTOPRAZOLE SOD 40 MG DELAYED RELEASE TAB PO SCH (08:56)
[2018-01-12] MEDS: traMADol HCL 50 MG TAB PO PRN ×3 (08:56→23:33)
[2018-01-12] MEDS: SODIUM CHLORIDE 0.9% FLUSH 10 ML FLUSH IV FLUSH SCH ×2 (08:57→20:01)
[2018-01-12] MEDS: HEPARIN SODIUM - SQ 10,000 UNITS/ML VIAL SQ SCH ×2 (09:49→20:02)
--- NOTE | 2018-01-12 14:20 | HHI.PR ---
Subjective Remarks Patient reports she is feeling very fatigued today. She reports cold symptoms with nasal congestion and has been coughing up clear sputum. She is very concerned about having the flu. Objective Vitals Vital Signs Date Time Temp Pulse Resp B/P (MAP) Pulse Ox O2 Delivery O2 Flow Rate FiO2 01/12/18 13:37 78 01/12/18 12:23 98.2 82 18 140/70 (93) 98 01/12/18 12:00 78 01/12/18 11:00 79 01/12/18 10:00 94 01/12/18 09:00 88 01/12/18 08:29 98.0 89 18 162/90 (114) 97 01/12/18 08:00 82 01/12/18 07:00 84 01/12/18 04:05 82 01/12/18 04:00 97.6 84 20 134/80 (98) 97 01/12/18 00:13 18 01/12/18 00:02 78 01/12/18 00:00 97.6 83 20 147/75 (99) 97 01/11/18 20:08 88 01/11/18 20:00 98.0 86 20 137/72 (93) 98 01/11/18 18:30 94 16 113/64 (80) 98 Nasal Cannula 2 01/11/18 18:15 96 16 118/67 (84) 98 Nasal Cannula 2 01/11/18 18:00 84 01/11/18 18:00 97.8 90 16 99/52 (68) 95 Nasal Cannula 2 01/11/18 16:00 90 01/11/18 15:10 97.8 81 16 151/73 (99) 98 01/11/18 15:00 80 I/O 01/11/18 01/11/18 01/11/18 01/12/18 01/12/18 01/12/18 07:00 15:00 23:00 07:00 15:00 23:00 Intake Total 240 ml 500 ml Output Total 900 ml 600 ml 900 ml Balance -660 ml -100 ml -900 ml Intake Oral 240 ml 350 ml Other 150 ml Output Urine Total 900 ml 600 ml 900 ml Result Diagram: 01/10/1861701/10/18617 Objective Remarks GENERAL: Obese female in no apparent distress. CARDIOVASCULAR: Normal rate and regular rhythm without murmurs, gallops, or rubs. RESPIRATORY: Good respiratory efforts. Breath sounds equal and clear to auscultation bilaterally. GASTROINTESTINAL: Abdomen soft, mild discomfort in the midepigastric region. Normal active bowel sounds MUSCULOSKELETAL: Extremities without cyanosis, or edema. NEURO: Alert & Oriented x4 to person, place, time, situation. Moves all ext x4. Generalized weakness PSYCH: Appropriate mood and affect. A/P Problem List: (1) Abdominal pain ICD Code: R10.9 - Unspecified abdominal pain (2) Generalized weakness ICD Code: R53.1 - Weakness (3) Influenza ICD Code: J11.1 - Influenza due to unidentified influenza virus with other respiratory manifestations Assessment and Plan Abdominal pain Right upper quadrant is tender and colicky according to patient on presentation Patient met criteria for SIRS on admission Significantly improved. Status post EGD which revealed gastritis. Patient started on PPI. Biopsy taken. Patient tested positive for flu. Probably contributed to symptoms. Influenza: - Patient positive for flu. Will start on Tamiflu. Syncopal episode Possibly related to hypoglycemia Patient takes 30 units of NovoLog at 11 PM last night prior to sleeping (sugar was 320) by 5 AM she had syncope Neurologically intact except for generalized weakness from physical deconditioning. Type 2 diabetes Accu-Cheks with sliding scale coverage Diabetic diet Coronary artery disease Patient takes isosorbide Recurrent urinary tract infections No current infection Hypertension Continue home meds DVT prophylaxis Heparin Discharge Planning Patient can be discharged to SNF after 3-4 days of treatment for Influenza per case management. OK to transfer to med/surge floor. Yoni Hutchins MD Jan 12, 2018 14:20
[2018-01-12] MEDS: OSELTAMIVIR PHOSPHATE 75 MG CAP PO SCH ×2 (15:27→20:00)
[2018-01-13] VITALS (26 sets, daily range): BP systolic 120–164; BP diastolic 59–82; PULSE 75–102; RESP 18–20; TEMP 98.1–98.6; O2SAT 96–98
[2018-01-13] MEDS: ASPIRIN 81 MG CHEW TAB PO SCH (08:40)
[2018-01-13] MEDS: PANTOPRAZOLE SOD 40 MG DELAYED RELEASE TAB PO SCH (08:40)
[2018-01-13] MEDS: METOPROLOL TARTRATE 25 MG TAB PO SCH ×2 (08:40→20:43)
[2018-01-13] MEDS: GABAPENTIN 300 MG CAP PO SCH ×4 (08:40→20:43)
[2018-01-13] MEDS: DICYCLOMINE HCL 10 MG CAP PO SCH ×4 (08:40→20:43)
[2018-01-13] MEDS: ISOSORBIDE MONONITRATE 60 MG CR TAB (IMDUR) PO SCH (08:40)
[2018-01-13] MEDS: HEPARIN SODIUM - SQ 10,000 UNITS/ML VIAL SQ SCH ×2 (08:40→20:43)
[2018-01-13] MEDS: INSULIN ASPART SUPPLEMENTAL SCALE SQ SCH ×4 (08:42→20:59)
[2018-01-13] MEDS: OSELTAMIVIR PHOSPHATE 75 MG CAP PO SCH ×2 (08:49→20:43)
[2018-01-13] MEDS: traMADol HCL 50 MG TAB PO PRN ×2 (08:49→18:04)
--- NOTE | 2018-01-13 12:27 | HHI.PR ---
Subjective Remarks Patient complains she did not sleep well last night. Complains of issues with neuropathy and pain. Objective Vitals Vital Signs Date Time Temp Pulse Resp B/P (MAP) Pulse Ox O2 Delivery O2 Flow Rate FiO2 01/13/18 07:30 97 Nasal Cannula 1.00 01/13/18 07:26 98.4 102 20 159/82 (107) 97 01/13/18 06:00 83 01/13/18 05:00 82 01/13/18 04:00 80 01/13/18 04:00 98.2 80 18 120/59 (79) 97 01/13/18 04:00 Room Air 01/13/18 03:00 82 01/13/18 02:00 81 01/13/18 01:00 79 01/13/18 00:00 Nasal Cannula 2.00 01/13/18 00:00 75 01/13/18 00:00 98.4 75 20 158/75 (102) 97 01/12/18 23:00 77 01/12/18 22:00 81 01/12/18 21:00 89 01/12/18 20:00 98.1 87 20 153/85 (107) 98 01/12/18 20:00 87 01/12/18 20:00 Nasal Cannula 2.00 01/12/18 18:02 82 01/12/18 17:00 78 01/12/18 16:09 82 01/12/18 15:25 98.0 78 18 136/80 (98) 97 01/12/18 15:00 88 01/12/18 14:00 76 01/12/18 13:37 78 I/O 01/12/18 01/12/18 01/12/18 01/13/18 01/13/18 01/13/18 07:00 15:00 23:00 07:00 15:00 23:00 Intake Total 600 ml 480 ml Output Total 900 ml 750 ml 800 ml Balance -900 ml -150 ml -320 ml Intake Oral 600 ml 480 ml Output Urine Total 900 ml 750 ml 800 ml # Bowel Movements 2 0 Result Diagram: 01/10/1861701/10/18617 Objective Remarks GENERAL: Obese female in no apparent distress. CARDIOVASCULAR: Normal rate and regular rhythm without murmurs, gallops, or rubs. RESPIRATORY: Good respiratory efforts. Breath sounds equal and clear to auscultation bilaterally. GASTROINTESTINAL: Abdomen soft, mild discomfort in the midepigastric region. Normal active bowel sounds MUSCULOSKELETAL: Extremities without cyanosis, or edema. NEURO: Alert & Oriented x4 to person, place, time, situation. Moves all ext x4. Generalized weakness PSYCH: Appropriate mood and affect. A/P Problem List: (1) Abdominal pain ICD Code: R10.9 - Unspecified abdominal pain (2) Generalized weakness ICD Code: R53.1 - Weakness (3) Influenza ICD Code: J11.1 - Influenza due to unidentified influenza virus with other respiratory manifestations Assessment and Plan Abdominal pain Right upper quadrant is tender and colicky according to patient on presentation Patient met criteria for SIRS on admission Significantly improved. Status post EGD which revealed gastritis. Patient started on PPI. Biopsy taken. Patient tested positive for flu. Probably contributed to symptoms. Influenza: - Patient positive for flu. Continue Tamiflu. Syncopal episode Possibly related to hypoglycemia Patient takes 30 units of NovoLog at 11 PM last night prior to sleeping (sugar was 320) by 5 AM she had syncope Neurologically intact except for generalized weakness from physical deconditioning. Type 2 diabetes Accu-Cheks with sliding scale coverage Diabetic diet Diabetic neuropathy: - Continue gabapentin. Will increase the nighttime dose. Insomnia: -Vistaril ordered as needed. Coronary artery disease Patient takes isosorbide Recurrent urinary tract infections No current infection Hypertension Continue home meds DVT prophylaxis Heparin Discharge Planning Patient can be discharged to SNF after 3-4 days of treatment for Influenza per case management. Probably Monday. OK to transfer to med/surge floor. Yoni Hutchins MD Jan 13, 2018 12:27
[2018-01-13] MEDS: SODIUM CHLORIDE 0.9% FLUSH 10 ML FLUSH IV FLUSH SCH ×2 (13:18→20:42)
[2018-01-13] MEDS: TEMAZEPAM 15 MG CAP PO PRN (20:42)
[2018-01-14] VITALS (25 sets, daily range): BP systolic 121–156; BP diastolic 64–76; PULSE 61–102; RESP 18; TEMP 98.1–98.4; O2SAT 95–97
[2018-01-14] MEDS: traMADol HCL 50 MG TAB PO PRN ×3 (00:05→18:30)
[2018-01-14] MEDS: SODIUM CHLORIDE 0.9% FLUSH 10 ML FLUSH IV FLUSH SCH ×2 (08:10→20:13)
[2018-01-14] MEDS: HEPARIN SODIUM - SQ 10,000 UNITS/ML VIAL SQ SCH ×2 (08:14→20:14)
[2018-01-14] MEDS: ISOSORBIDE MONONITRATE 60 MG CR TAB (IMDUR) PO SCH (08:15)
[2018-01-14] MEDS: ASPIRIN 81 MG CHEW TAB PO SCH (08:15)
[2018-01-14] MEDS: PANTOPRAZOLE SOD 40 MG DELAYED RELEASE TAB PO SCH (08:15)
[2018-01-14] MEDS: METOPROLOL TARTRATE 25 MG TAB PO SCH ×2 (08:16→20:15)
[2018-01-14] MEDS: GABAPENTIN 300 MG CAP PO SCH ×4 (08:16→20:14)
[2018-01-14] MEDS: DICYCLOMINE HCL 10 MG CAP PO SCH ×4 (08:16→20:14)
[2018-01-14] MEDS: OSELTAMIVIR PHOSPHATE 75 MG CAP PO SCH ×2 (08:16→20:15)
[2018-01-14] MEDS: INSULIN ASPART SUPPLEMENTAL SCALE SQ SCH ×4 (08:53→20:31)
[2018-01-14] MEDS ORDERED: ACETAMINOPHEN/HYDROcodone 325 MG/7.5 MG TAB PO PRN (11:30)
--- NOTE | 2018-01-14 11:31 | HHI.PR ---
Subjective Remarks Patient reports around 2 AM she woke up with a sharp and burning pain under her left breast radiating to the left. The area is blistering. She reports history of chickenpox. Objective Vitals Vital Signs Date Time Temp Pulse Resp B/P (MAP) Pulse Ox O2 Delivery O2 Flow Rate FiO2 01/14/18 09:00 86 01/14/18 08:00 98.1 87 18 156/70 (98) 96 01/14/18 08:00 88 01/14/18 07:30 Room Air 01/14/18 07:00 83 01/14/18 06:00 72 01/14/18 05:00 77 01/14/18 04:00 98.2 71 18 122/70 (87) 97 01/14/18 04:00 Nasal Cannula 1.00 01/14/18 04:00 71 01/14/18 03:00 73 01/14/18 02:00 75 01/14/18 01:00 70 01/14/18 00:00 Nasal Cannula 1.00 01/14/18 00:00 75 01/14/18 00:00 98.4 61 18 121/64 (83) 97 01/13/18 23:00 77 01/13/18 22:00 81 01/13/18 21:00 85 01/13/18 20:00 87 01/13/18 20:00 98.6 87 18 164/81 (108) 98 01/13/18 20:00 Nasal Cannula 1.00 01/13/18 18:00 86 01/13/18 17:28 98.1 89 18 150/80 (103) 96 01/13/18 17:00 86 01/13/18 16:00 86 01/13/18 15:00 98 01/13/18 14:00 78 01/13/18 13:00 82 01/13/18 12:51 98.2 85 18 139/74 (95) 96 01/13/18 12:00 84 I/O 01/13/18 01/13/18 01/13/18 01/14/18 01/14/18 01/14/18 07:00 15:00 23:00 07:00 15:00 23:00 Intake Total 480 ml 720 ml 480 ml Output Total 800 ml 500 ml 700 ml Balance -320 ml 220 ml -220 ml Intake Oral 480 ml 720 ml 480 ml Output Urine Total 800 ml 500 ml 700 ml # Bowel Movements 0 1 0 Result Diagram: 01/10/1861701/10/18617 Objective Remarks GENERAL: Obese female in no apparent distress. SKIN: Under the left breast and radiating to the left in a dermatomal patter there is marked erythema and blisters. CARDIOVASCULAR: Normal rate and regular rhythm without murmurs, gallops, or rubs. RESPIRATORY: Good respiratory efforts. Breath sounds equal and clear to auscultation bilaterally. GASTROINTESTINAL: Abdomen soft, mild discomfort in the midepigastric region. Normal active bowel sounds MUSCULOSKELETAL: Extremities without cyanosis, or edema. NEURO: Alert & Oriented x4 to person, place, time, situation. Moves all ext x4. Generalized weakness PSYCH: Appropriate mood and affect. A/P Problem List: (1) Abdominal pain ICD Code: R10.9 - Unspecified abdominal pain (2) Generalized weakness ICD Code: R53.1 - Weakness (3) Influenza ICD Code: J11.1 - Influenza due to unidentified influenza virus with other respiratory manifestations (4) Shingles ICD Code: B02.9 - Zoster without complications Assessment and Plan Abdominal pain Right upper quadrant is tender and colicky according to patient on presentation Patient met criteria for SIRS on admission Significantly improved. Status post EGD which revealed gastritis. Patient started on PPI. Biopsy taken. Patient tested positive for flu. Probably contributed to symptoms. Influenza: - Patient positive for flu. Continue Tamiflu. Shingles: rash -Classic symptoms. Will start patient on valacyclovir thousand milligrams 3 times daily, change pain medication to [place]. I cannot completely rule out superimposed fungal rash, therefore will also add nystatin powder. Syncopal episode Possibly related to hypoglycemia Patient takes 30 units of NovoLog at 11 PM last night prior to sleeping (sugar was 320) by 5 AM she had syncope Neurologically intact except for generalized weakness from physical deconditioning. Type 2 diabetes Accu-Cheks with sliding scale coverage Diabetic diet Diabetic neuropathy: - Continue gabapentin. Will increase the nighttime dose. Insomnia: -Vistaril ordered as needed. Coronary artery disease Patient takes isosorbide Recurrent urinary tract infections No current infection Hypertension Continue home meds DVT prophylaxis Heparin Discharge Planning Patient can be discharged to SNF tomorrow. Yoni Hutchins MD Jan 14, 2018 11:31
[2018-01-14] MEDS: valACYclovir HCL 500 MG TAB PO SCH ×2 (13:31→20:17)
[2018-01-14] MEDS ORDERED: VALT500T PO (13:44)
[2018-01-14] MEDS ORDERED: HYDR-3580 PO (13:44)
[2018-01-14] MEDS ORDERED: Nystatin Powder TOPICAL (13:46)
[2018-01-14] MEDS ORDERED: OSEL75 PO (13:46)
[2018-01-14] MEDS: NYSTATIN 100,000 U/GM PWD 15 GM BTL TOPICAL SCH ×2 (15:42→20:14)
[2018-01-14] MEDS: TEMAZEPAM 15 MG CAP PO PRN (20:14)
[2018-01-15] VITALS (7 sets, daily range): BP systolic 149–157; BP diastolic 72–83; PULSE 73–81; RESP 18; TEMP 98.2; O2SAT 97
[2018-01-15] MEDS: traMADol HCL 50 MG TAB PO PRN ×2 (00:09→05:58)
[2018-01-15] MEDS: valACYclovir HCL 500 MG TAB PO SCH (05:58)
--- NOTE | 2018-01-15 08:43 | HHI.DS ---
Discharge Summary Admission Date Jan 08, 2018 at 18:36 Discharge Date: Jan 15, 2018 Admitting Diagnosis sepsis, weakness, dizziness (1) Abdominal pain ICD Code: R10.9 - Unspecified abdominal pain (2) Generalized weakness ICD Code: R53.1 - Weakness (3) Influenza ICD Code: J11.1 - Influenza due to unidentified influenza virus with other respiratory manifestations (4) Shingles ICD Code: B02.9 - Zoster without complications Procedures EGD Brief History - From Admission HPI from the admitting physician: hx from patient, ER communication, review of med records have been having nausea, vomiting, diarrhea did not improve since discharge from 01/[address] duarte as hospital follow up had fevers 99.5 today am highest was 101 BS was high at home as well at 400a.m BS dropped, confused, and took candy pill but blacked out wokeup at 900a.m. got up and went to bathroom, room started spinning grab sink and passed out again did not hit head because bag of laundry was there no cough diarrhea urine smell epigastric pains urine retained in er today 500cc Imaging Last Impressions Abdomen/Pelvis CT 01/10/18 0600 Signed Impressions: Service Date/Time: Wednesday, January 10, 2018 10:27 - CONCLUSION: Small umbilical hernia containing a knuckle of colon. Mild left lung base infiltrate. Osorio Mireles MD Abdomen Ultrasound 01/09/18 2300 Signed Impressions: Service Date/Time: Tuesday, January 09, 2018 07:54 - CONCLUSION: 1. No evidence of acute process, suspicious mass or lymphadenopathy. 2. Status post cholecystectomy. 3. Infrarenal abdominal aorta maximally visualized. 4. No apparent cause for patient's abdominal pain. Juan Cerda MD Chest X-Ray 01/08/18 1222 Signed Impressions: Service Date/Time: Monday, January 08, 2018 14:17 - CONCLUSION: No acute disease. Sandeep Brown MD PE at Discharge GENERAL: Obese female in no apparent distress. SKIN: Under the left breast and radiating to the left in a dermatomal patter there is marked erythema and blisters. CARDIOVASCULAR: Normal rate and regular rhythm without murmurs, gallops, or rubs. RESPIRATORY: Good respiratory efforts. Breath sounds equal and clear to auscultation bilaterally. GASTROINTESTINAL: Abdomen soft, mild discomfort in the midepigastric region. Normal active bowel sounds MUSCULOSKELETAL: Extremities without cyanosis, or edema. NEURO: Alert & Oriented x4 to person, place, time, situation. Moves all ext x4. Generalized weakness PSYCH: Appropriate mood and affect. Pt update on day of discharge Patient reports she is feeling much better. Rash on the left breast is improving with less sharp shooting pain. Eating well. No other issues. Hospital Course 82-year-old female admitted and treated for the following: Abdominal pain Right upper quadrant is tender and colicky according to patient on presentation Patient met criteria for SIRS on admission Significantly improved. Status post EGD which revealed gastritis. Patient started on PPI. Biopsy taken. Patient tested positive for flu. Probably contributed to symptoms. Influenza: - Patient positive for flu. Continue Tamiflu to complete treatment course. Shingles: rash -Classic symptoms. Patient was started on valacyclovir thousand milligrams 3 times daily, change pain medication to [place]. I cannot completely rule out superimposed fungal rash, therefore nystatin powder also added. Syncopal episode Possibly related to hypoglycemia Patient takes 30 units of NovoLog at 11 PM last night prior to sleeping (sugar was 320) by 5 AM she had syncope Neurologically intact except for generalized weakness from physical deconditioning. Patient was evaluated by PT. No further symptoms. Type 2 diabetes Resume home medications Diabetic diet Diabetic neuropathy: - Continue gabapentin. Insomnia: -Vistaril ordered as needed. Coronary artery disease Continue home medications. Hypertension Continue home meds Pt Condition on Discharge: Good Discharge Disposition: Discharge to SNF Discharge Time: > 30 minutes Discharge Instructions DIET: Follow Instructions for: Heart Healthy Diet Activities you can perform: Regular-No Restrictions Follow up Referrals: Gastroenterology - 2 Weeks with Quentin Perkins MD PCP Follow-up - 2 Weeks New Medications: Oseltamivir (Tamiflu) 75 Mg Cap 75 MG PO BID, #4 CAP Pantoprazole (Pantoprazole) 40 Mg Tab 40 MG PO DAILY, #30 TAB Temazepam (Restoril) 15 Mg Cap 15 MG PO HS PRN for INSOMNIA, #15 CAP Tramadol (Ultram) 50 Mg Tab 50 MG PO Q6H PRN for PAIN >5, #15 TAB Valacyclovir (Valtrex) 500 Mg Tab 1000 MG PO Q8HR, #21 TAB [Nystatin Powder] () 15 APPLIC/15 GM POWD 1 APPLIC TOPICAL Q12HR, #1 BOX Changed Medications: Gabapentin (Gabapentin) 300 Mg Cap 300 MG PO TID, #60 CAP 0 Refills (Changed from: DAILY) Continued Medications: Aspirin (Aspirin Low Dose) 81 Mg Chew 81 MG PO DAILY, TAB 0 Refills Calcium Carbonate (Antacid) (Tums) 500 Mg Chew 500 MG CHEW BID PRN for HEARTBURN, #20 TAB 0 Refills Dicyclomine (Bentyl) 10 Mg Cap 10 MG PO QID for Bowel Management, CAP 0 Refills Insulin Aspart Inj (Novolog Inj) 1,000 Unit/10 Ml Vial 30-45 UNITS SQ QID for Blood Sugar Management, #10 ML 0 Refills Isosorbide Mononitrate ER (Isosorbide Mononitrate ER) 60 Mg Tab 60 MG PO DAILY for Prevent Chest Pain, #30 TAB 0 Refills Metoprolol Tartrate (Metoprolol Tartrate) 25 Mg Tab 25 MG PO BID, #60 TAB 0 Refills Ondansetron (Zofran) 4 Mg Tab 4 MG PO Q8HR PRN for NAUSEA OR VOMITING, #10 TAB 0 Refills Yoni Hutchins MD Jan 15, 2018 08:43
[2018-01-15] MEDS ORDERED: REST15CA PO (09:25)
[2018-01-15] MEDS: GABAPENTIN 300 MG CAP PO SCH (09:43)
[2018-01-15] MEDS: HEPARIN SODIUM - SQ 10,000 UNITS/ML VIAL SQ SCH (09:43)
[2018-01-15] MEDS: ASPIRIN 81 MG CHEW TAB PO SCH (09:43)
[2018-01-15] MEDS: PANTOPRAZOLE SOD 40 MG DELAYED RELEASE TAB PO SCH (09:44)
[2018-01-15] MEDS: ISOSORBIDE MONONITRATE 60 MG CR TAB (IMDUR) PO SCH (09:44)
[2018-01-15] MEDS: METOPROLOL TARTRATE 25 MG TAB PO SCH (09:44)
[2018-01-15] MEDS: DICYCLOMINE HCL 10 MG CAP PO SCH (09:44)
[2018-01-15] MEDS: OSELTAMIVIR PHOSPHATE 75 MG CAP PO SCH (09:44)
== END 2018-01-15 11:37 | DRG 392 ==
LOC: NED 11:35 → NEDA 18:36 → NEDH 22:47 → HCIS 01-09 13:51
PROVIDERS: ADMIT Family Medicine; ATTEND Family Medicine
PROC: 0DB78ZX Excision of Stomach, Pylorus, Via Natural or Artificial Opening Endoscopic, Diagnostic (ICD-10-PCS; principal; 2018-01-11 17:37)
DX: K29.70 Gastritis, unspecified, without bleeding (principal); R65.10 Systemic inflammatory response syndrome (SIRS) of non-infectious origin without acute organ dysfunction; E11.22 Type 2 diabetes mellitus with diabetic chronic kidney disease; Z68.42 Body mass index [BMI] 45.0-49.9, adult; E11.40 Type 2 diabetes mellitus with diabetic neuropathy, unspecified; E11.59 Type 2 diabetes mellitus with other circulatory complications; B02.9 Zoster without complications; J11.1 Influenza due to unidentified influenza virus with other respiratory manifestations; R55 Syncope and collapse; I25.10 Atherosclerotic heart disease of native coronary artery without angina pectoris; R00.0 Tachycardia, unspecified; R81 Glycosuria; M62.838 Other muscle spasm; K58.0 Irritable bowel syndrome with diarrhea; N18.9 Chronic kidney disease, unspecified; I12.9 Hypertensive chronic kidney disease with stage 1 through stage 4 chronic kidney disease, or unspecified chronic kidney disease; E66.9 Obesity, unspecified; E11.65 Type 2 diabetes mellitus with hyperglycemia; E11.649 Type 2 diabetes mellitus with hypoglycemia without coma; E78.00 Pure hypercholesterolemia, unspecified; K21.9 Gastro-esophageal reflux disease without esophagitis; K43.9 Ventral hernia without obstruction or gangrene; G47.00 Insomnia, unspecified; G89.29 Other chronic pain; M54.9 Dorsalgia, unspecified; W19.XXXA Unspecified fall, initial encounter; Y92.009 Unspecified place in unspecified non-institutional (private) residence as the place of occurrence of the external cause; Y92.002 Bathroom of unspecified non-institutional (private) residence as the place of occurrence of the external cause; Z87.440 Personal history of urinary (tract) infections; Z98.1 Arthrodesis status; Z79.4 Long term (current) use of insulin
CPT/HCPCS: 71046; 74176; 76700; 76937; 80048; 80053; 81001; 82550; 82552; 82948; 83605; 83690; 84484; 85025; 85027; 85610; 85730; 87040; 87804; 88305; 88312; 93005; 96361; 96365; 96367; 96375; C9113; J1644; J1815; J2370; J2543; J3370; J7030; J7040; P9612